=== PATIENT | female | born 1950 | race Caucasian/White ===

== ENCOUNTER → 2017-01-23 | Outpatient (CLI) | payer MEDICARE ==
[~2017-01-23] MED LIST: /PRAV20TA PO; ALBUTEROL INH; CELE20TA PO; HYDR25TA6 PO; LISI20TA5 PO; MELOPOW PO; OMEP20TA7 PO; PERC5TAB8 OR; POTA20TA PO; TOPR25TA OR
[2017-01-23 13:54] LABS: BASO % 0.6 % (0.0-1.0); EOS # 0.1 K/mm3 (0.0-0.50); EOS % 1.3 % (0.0-3.0); LARGE UNSTAINED CELL # 0.1 K/mm3 (0.0-0.4); LARGE UNSTAINED CELL % 2.6 % (0.0-4.0); LYMPH # 1.7 K/mm3 (1.5-4.5); MEAN CORPUSCULAR HEMOGLOBIN 29.2 pg (27.0-33.0); MEAN CORPUSCULAR HGB CONC 33.7 g/dl (32.0-36.5); MEAN CORPUSCULAR VOLUME 86.8 fl (80.0-96.0); MONO # 0.3 K/mm3 (0.0-0.8); MONO % 6.4 % (0.0-5.0); NEUTROPHILS # 2.9 K/mm3 (1.8-7.7); PLATELET COUNT, AUTOMATED 264 k/mm3 (150-450); RED CELL DISTRIBUTION WIDTH 12.5 % (11.5-14.5); WHITE BLOOD COUNT 5.2 K/mm3 (4.0-10.0)
[2017-01-23 14:25] LABS: ALBUMIN 3.6 GM/DL (3.2-5.2); ALBUMIN/GLOBULIN RATIO 0.95 (1.00-1.93); ALKALINE PHOSPHATASE 99 U/L (45-117); ALT/SGPT 26 U/L (12-78); ANION GAP 8 MEQ/L (8-16); AST/SGOT 27 U/L (15-37); BILIRUBIN,TOTAL 0.5 MG/DL (0.2-1.0); BLOOD UREA NITROGEN 9 MG/DL (7-18); CALCIUM LEVEL 8.9 MG/DL (8.8-10.2); CARBON DIOXIDE LEVEL 28 MEQ/L (21-32); CHLORIDE LEVEL 105 MEQ/L (98-107); CREATININE FOR GFR 0.65 MG/DL (0.55-1.02); FERRITIN 25 NG/ML (8-252); GLOMERULAR FILTRATION RATE > 60.0 (>45); GLUCOSE, FASTING 87 MG/DL (80-110); MAGNESIUM LEVEL 2.1 MG/DL (1.8-2.4); PHOSPHORUS LEVEL 3.3 MG/DL (2.5-4.9); POTASSIUM SERUM 4.2 MEQ/L (3.5-5.1); SODIUM LEVEL 141 MEQ/L (136-145); TOTAL PROTEIN 7.4 GM/DL (6.4-8.2); VITAMIN B12 LEVEL 1407 PG/ML (247-911)
[2017-01-25 10:23] LABS: PRETREATED FOLATE FOR RBCFOL 16.1 NG/ML
== END ==
LOC: M LAB 13:19
PROVIDERS: ATTEND Surgery
DX: K91.2 Postsurgical malabsorption, not elsewhere classified (principal); Z98.84 Bariatric surgery status

== ENCOUNTER → 2017-08-07 | Outpatient (REF) | payer OTHER | LOC: M LAB REF 16:09 | PROVIDERS: ATTEND Physician Assistant | DX: N39.0 Urinary tract infection, site not specified (principal) ==

== ENCOUNTER → 2017-08-22 | Outpatient (REF) | payer OTHER | LOC: M LAB REF 17:17 | PROVIDERS: ATTEND Physician Assistant | DX: N39.0 Urinary tract infection, site not specified (principal) ==

== ENCOUNTER → 2017-12-23 | Outpatient (CLI) | payer MEDICARE ==
[2017-12-23 16:49] LABS: HEMOGLOBIN 13.9 g/dl (12.0-16.0); MEAN CORPUSCULAR HEMOGLOBIN 28.4 pg (27.0-33.0); MEAN CORPUSCULAR HGB CONC 32.3 g/dl (32.0-36.5); MEAN CORPUSCULAR VOLUME 87.9 fl (80.0-96.0); PLATELET COUNT, AUTOMATED 265 10^3/uL (150-450); RED BLOOD COUNT 4.89 10^6/uL (4.00-5.40); RED CELL DISTRIBUTION WIDTH 12.5 % (11.5-14.5); WHITE BLOOD COUNT 5.4 10^3/uL (4.0-10.0)
[2017-12-23 17:33] LABS: ALBUMIN 3.6 GM/DL (3.2-5.2); ALBUMIN/GLOBULIN RATIO 0.95 (1.00-1.93); ALKALINE PHOSPHATASE 85 U/L (45-117); ALT/SGPT 42 U/L (12-78); ANION GAP 5 MEQ/L (8-16); AST/SGOT 34 U/L (7-37); BILIRUBIN,TOTAL 0.4 MG/DL (0.2-1.0); BLOOD UREA NITROGEN 10 MG/DL (7-18); CALCIUM LEVEL 8.5 MG/DL (8.8-10.2); CARBON DIOXIDE LEVEL 30 MEQ/L (21-32); CHLORIDE LEVEL 107 MEQ/L (98-107); CHOLESTEROL LEVEL 222 MG/DL (<200); CHOLESTEROL RISK RATIO 3.762 (<5); CREATININE FOR GFR 0.77 MG/DL (0.55-1.30); FREE T3 2.3 PG/ML (2.2-4.0); FREE T4 0.81 NG/DL (0.76-1.46); GLOMERULAR FILTRATION RATE > 60.0 (>45); GLUCOSE, FASTING 97 MG/DL (70-100); HDL CHOLESTEROL 59 MG/DL (>40); NON-HDL-C 163 MG/DL; SODIUM LEVEL 142 MEQ/L (136-145); TOTAL PROTEIN 7.4 GM/DL (6.4-8.2); TRIGLYCERIDES LEVEL 110 MG/DL (<150)
[2017-12-23 18:33] LABS: MALB URINE SIEMENS 55.3 MG/L; MAU/CREAT RATIO 23.6 MCG/MG (0.0-30.0)
[2017-12-23 20:29] LABS: ESTIMATED AVERAGE GLUCOSE 114 MG/DL (60-110); HEMOGLOBIN A1c 5.6 %
== END ==
LOC: M WUC 11:29
DX: E03.9 Hypothyroidism, unspecified (principal); E11.9 Type 2 diabetes mellitus without complications
CPT/HCPCS: 84443

== ENCOUNTER → 2018-04-09 | Outpatient (CLI) | payer MEDICARE | LOC: M WUC 09:59 | DX: M17.12 Unilateral primary osteoarthritis, left knee (principal) | CPT/HCPCS: 73564 ==

== ENCOUNTER → 2018-05-29 | Outpatient (CLI) | payer MEDICARE | LOC: M RAD 11:05 | DX: Z12.31 Encounter for screening mammogram for malignant neoplasm of breast (principal); Z78.0 Asymptomatic menopausal state; Z92.29 Personal history of other drug therapy; Z92.89 Personal history of other medical treatment | CPT/HCPCS: 77067 ==

== ENCOUNTER → 2018-08-05 | Outpatient (CLI) | payer MEDICARE ==
[2018-08-05 17:40] LABS: FREE T3 2.3 PG/ML (2.2-4.0); FREE T4 0.94 NG/DL (0.76-1.46)
== END ==
LOC: M WUC 11:43
DX: E03.9 Hypothyroidism, unspecified (principal)
CPT/HCPCS: 84443

== ENCOUNTER → 2019-02-10 | Outpatient (CLI) | payer MEDICARE ==
[~2019-02-10] MED LIST changes: -/PRAV20TA PO; +METO-1 OR; +PRAV1TAB39 PO; -TOPR25TA OR
[2019-02-10 12:14] LABS: BASO % 0.9 % (0.0-1.0); EOS # 0.1 10^3/uL (0.0-0.50); EOS % 1.1 % (0.0-3.0); HEMOGLOBIN 13.8 g/dl (12.0-15.5); LYMPH # 1.7 10^3/uL (1.5-4.5); LYMPH % 37.6 % (24.0-44.0); MEAN CORPUSCULAR HEMOGLOBIN 29.1 pg (27.0-33.0); MEAN CORPUSCULAR HGB CONC 32.9 g/dl (32.0-36.5); MEAN CORPUSCULAR VOLUME 88.6 fl (80.0-96.0); MONO # 0.5 10^3/uL (0.0-0.8); MONO % 10.5 % (0.0-5.0); NEUTROPHILS # 2.3 10^3/uL (1.8-7.7); NEUTROPHILS % 49.7 % (36.0-66.0); PLATELET COUNT, AUTOMATED 292 10^3/uL (150-450); RED BLOOD COUNT 4.74 10^6/uL (4.00-5.40); WHITE BLOOD COUNT 4.6 10^3/uL (4.0-10.0)
[2019-02-10 12:36] LABS: HEMOGLOBIN A1c 5.5 %
[2019-02-10 12:47] LABS: ALBUMIN 3.3 GM/DL (3.2-5.2); ALT/SGPT 141 U/L (12-78); BILIRUBIN,TOTAL 0.5 MG/DL (0.2-1.0); BLOOD UREA NITROGEN 6 MG/DL (7-18); CALCIUM LEVEL 8.7 MG/DL (8.8-10.2); CARBON DIOXIDE LEVEL 29 MEQ/L (21-32); CHLORIDE LEVEL 107 MEQ/L (98-107); CHOLESTEROL LEVEL 193 MG/DL (<200); CHOLESTEROL RISK RATIO 2.718 (<5); CREATININE FOR GFR 0.68 MG/DL (0.55-1.30); FERRITIN 127 NG/ML (8-252); FOLATE > 24.0 NG/ML; FREE T4 1.57 NG/DL (0.76-1.46); GLOMERULAR FILTRATION RATE > 60.0 (>45); GLUCOSE, FASTING 82 MG/DL (70-100); HDL CHOLESTEROL 71 MG/DL (>40); IRON (FE) 99 UG/DL (50-170); LDL CHOLESTEROL 101 MG/DL (<100); MAGNESIUM LEVEL 2.1 MG/DL (1.8-2.4); NON-HDL-C 122 MG/DL; PERCENT SATURATION 24.5 % (13.2-45.0); POTASSIUM SERUM 3.9 MEQ/L (3.5-5.1); SODIUM LEVEL 142 MEQ/L (136-145); THYROID STIMULATING HORMONE 0.125 uIU/ML (0.358-3.740); TOTAL 25(OH) VITAMIN D 31.7 NG/ML (30.0-100.0); TOTAL IRON BINDING CAPACITY 404 UG/DL (250-450); TOTAL T3 130.2 NG/DL (60.0-181.0); TRIGLYCERIDES LEVEL 104 MG/DL (<150); VITAMIN B12 LEVEL 1277 PG/ML
== END ==
LOC: M LAB 11:44
PROVIDERS: ATTEND Family Medicine
DX: E11.9 Type 2 diabetes mellitus without complications (principal); Z98.84 Bariatric surgery status; E03.9 Hypothyroidism, unspecified; Z79.899 Other long term (current) drug therapy

== ENCOUNTER → 2019-08-25 | Outpatient (CLI) | payer MEDICARE ==
--- NOTE | 2019-08-25 12:48 | REPMRS ---
Patient History The patient states she has not had a clinical breast exam in over a year. Family history of unknown cancer at age 26 in son. Taking unspecified hormones for 10 years. 3D TOMOSYNTHESIS WAS PERFORMED. [facility] lifetime risk for breast cancer is 4.3%. Digital Mammo Screening Bilat: August 25, 2019 - Exam #: [id number] Bilateral CC and MLO view(s) were taken. Technologist: Celeste Barnes, Technologist Prior study comparison: May 29, 2018, bilateral digital mammo screening bilat performed at [facility]. FINDINGS: There are scattered fibroglandular densities. There has been no change in the appearance of the mammogram from the prior studies. There is a mild amount of residual fibroglandular tissue which is fairly symmetric. There is no interval development of dominant mass, architectural distortion, or clustered microcalcification suggestive of malignancy. Assessment: BI-RADS/ACR category 1 mammogram. Negative Mammogram. Recommendation Routine screening mammogram in 1 year (for women over age 40). This mammogram was interpreted with the aid of an FDA-approved computer-aided dectection system. Electronically Signed By: Mehran Hillman MD 08/25/19 [id number]
[2019-08-25 13:22] LABS: ALBUMIN 3.1 GM/DL (3.2-5.2); ALT/SGPT 37 U/L (12-78); BILIRUBIN,DIRECT 0.2 MG/DL (0.0-0.2); BILIRUBIN,TOTAL 0.5 MG/DL (0.2-1.0); FREE T4 1.19 NG/DL (0.76-1.46); TOTAL PROTEIN 7.4 GM/DL (6.4-8.2)
[2019-08-26 09:09] LABS: HEPATITIS B SURFACE ANTIGEN NEGATIVE (NEGATIVE)
[2019-08-26 09:36] LABS: HEPATITIS B CORE ANTIBODY IGM NEGATIVE (NEGATIVE); HEPATITIS C VIRUS ABY INDEX 0.2 INDEX (<0.8)
[2019-08-26 09:38] LABS: HEPATITIS A ANTIBODY IGM NEGATIVE (NEGATIVE)
== END ==
LOC: M RAD 11:32
PROVIDERS: ATTEND Family Medicine
DX: E03.9 Hypothyroidism, unspecified (principal); R74.0 Nonspecific elevation of levels of transaminase and lactic acid dehydrogenase [LDH]; Z12.31 Encounter for screening mammogram for malignant neoplasm of breast

== ENCOUNTER → 2020-06-24 | Outpatient (CLI) | payer MEDICARE ==
[2020-07-23 04:23] LABS: HEMATOCRIT 44.1 % (36.0-47.0); HEMOGLOBIN 13.9 g/dl (12.0-15.5); MEAN CORPUSCULAR HEMOGLOBIN 27.6 pg (27.0-33.0); MEAN CORPUSCULAR HGB CONC 31.5 g/dl (32.0-36.5); MEAN CORPUSCULAR VOLUME 87.5 fl (80.0-96.0); PLATELET COUNT, AUTOMATED 295 10^3/uL (150-450); RED BLOOD COUNT 5.04 10^6/uL (4.00-5.40); WHITE BLOOD COUNT 6.4 10^3/uL (4.0-10.0)
[2020-08-08 10:04] LABS: ALBUMIN 3.5 GM/DL (3.2-5.2); ALT/SGPT 41 U/L (12-78); BILIRUBIN,TOTAL 0.5 MG/DL (0.2-1.0); BLOOD UREA NITROGEN 10 MG/DL (7-18); CALCIUM LEVEL 9.4 MG/DL (8.8-10.2); CARBON DIOXIDE LEVEL 30 MEQ/L (21-32); CHLORIDE LEVEL 106 MEQ/L (98-107); CHOLESTEROL LEVEL 225 MG/DL (<200); CHOLESTEROL RISK RATIO 2.848 (<5); FERRITIN 18 NG/ML (8-252); FOLATE > 24.0 NG/ML; FREE T3 1.9 PG/ML (2.2-4.0); FREE T4 0.94 NG/DL (0.76-1.46); GLOMERULAR FILTRATION RATE > 60.0 (>45); GLUCOSE, FASTING 92 MG/DL (70-100); HDL CHOLESTEROL 79 MG/DL (>40); IRON (FE) 99 UG/DL (50-170); LDL CHOLESTEROL 124 MG/DL (<100); MAGNESIUM LEVEL 2.1 MG/DL (1.8-2.4); NON-HDL-C 146 MG/DL; PERCENT SATURATION 21.2 % (13.2-45.0); POTASSIUM SERUM 4.6 MEQ/L (3.5-5.1); SODIUM LEVEL 140 MEQ/L (136-145); TOTAL 25(OH) VITAMIN D 42.6 NG/ML (30.0-100.0); TOTAL IRON BINDING CAPACITY 467 UG/DL (250-450); TRIGLYCERIDES LEVEL 109 MG/DL (<150); VITAMIN B12 LEVEL 1437 PG/ML
== END ==
LOC: M LAB 11:50
PROVIDERS: ATTEND Family Medicine
DX: E03.9 Hypothyroidism, unspecified (principal); E11.9 Type 2 diabetes mellitus without complications; Z98.84 Bariatric surgery status; Z79.899 Other long term (current) drug therapy

== ENCOUNTER 2020-10-08 04:25 | Emergency (ER) | payer MEDICARE ==
[~2020-10-08] VITALS: Ht 152.4 cm; Wt 83.5 kg
[2020-10-08] MEDS ORDERED: OXYB5TAB10 PO (04:37)
[2020-10-08] MEDS ORDERED: GABA-845 PO (04:37)
[2020-10-08] MEDS ORDERED: EUTH100T PO (04:37)
[2020-10-08] MEDS ORDERED: OMEP10CASR PO (04:37)
[2020-10-08] MEDS ORDERED: PERCOCET 5MG/325MG TAB PO ONE (05:15)
[2020-10-08 05:59] VITALS: BP 180/110
[2020-10-08] MEDS ORDERED: PERC5TAB12 PO ×2 (06:04→06:05)
[2020-10-08] MEDS ORDERED: OXYCODONE/APAP 5MG/325MG(BULK FOR ED) 1 TABLET PO ONE (06:15)
--- NOTE | 2020-10-08 06:30 | REPVR ---
PROCEDURE INFORMATION: Exam: XR Left Shoulder Exam date and time: 10/08/2020 5:44 AM Age: 70 years old Clinical indication: Other: Falll, pain; Additional info: Fall, pain TECHNIQUE: Imaging protocol: XR Left shoulder. Views: 2 or more views. COMPARISON: No relevant prior studies available. FINDINGS: Bones/joints: There is an acute, comminuted fracture of the surgical neck of the humerus. There is medial displacement of the humeral diaphysis relative to the humeral head. There is mild valgus angulation of the humeral diaphysis. There is an ossific density superior to the humeral head which appears to be a large inferior spur from the acromion. There is no dislocation. Degenerative changes are seen at the acromioclavicular joint. Soft tissues: Unremarkable. IMPRESSION: 1. Acute, comminuted, mildly displaced and angulated fracture of the surgical neck of the humerus. 2. Large inferior spur of the lateral acromion. Electronically signed by: Babs Lebron On 10/08/2020 06:29:42 AM
== END 2020-10-08 06:23 | disposition home or self-care (01) ==
LOC: M ED 04:25
DX: S42.212A Unspecified displaced fracture of surgical neck of left humerus, initial encounter for closed fracture (principal); W10.8XXA Fall (on) (from) other stairs and steps, initial encounter; Y92.410 Unspecified street and highway as the place of occurrence of the external cause; Y93.9 Activity, unspecified; M25.712 Osteophyte, left shoulder; I10 Essential (primary) hypertension; K21.9 Gastro-esophageal reflux disease without esophagitis; Z87.891 Personal history of nicotine dependence; Z79.899 Other long term (current) drug therapy

== ENCOUNTER → 2020-12-16 | Outpatient (CLI) | payer MEDICARE ==
[~2020-12-16] MED LIST changes: +EUTH100T PO; +GABA-845 PO; +OMEP10CASR PO; +OXYB5TAB10 PO; +PERC5TAB12 PO
[2020-12-16 13:46] LABS: BLOOD UREA NITROGEN 9 MG/DL (7-18); GLOMERULAR FILTRATION RATE > 60.0 (>45)
== END ==
LOC: M LAB 12:48
PROVIDERS: ATTEND Orthopaedic Surgery
DX: S80.01XD Contusion of right knee, subsequent encounter (principal); X58.XXXD Exposure to other specified factors, subsequent encounter; Y92.9 Unspecified place or not applicable

== ENCOUNTER → 2021-03-07 | Outpatient (CLI) | payer MEDICARE ==
[2021-03-07 11:19] LABS: HEMATOCRIT 44.1 % (36.0-47.0); HEMOGLOBIN 13.9 g/dl (12.0-15.5); MEAN CORPUSCULAR HEMOGLOBIN 27.7 pg (27.0-33.0); MEAN CORPUSCULAR HGB CONC 31.5 g/dl (32.0-36.5); MEAN CORPUSCULAR VOLUME 87.8 fl (80.0-96.0); PLATELET COUNT, AUTOMATED 314 10^3/uL (150-450); RED BLOOD COUNT 5.02 10^6/uL (4.00-5.40); WHITE BLOOD COUNT 5.3 10^3/uL (4.0-10.0)
[2021-03-07 11:52] LABS: ALBUMIN 3.7 GM/DL (3.2-5.2); ALT/SGPT 32 U/L (12-78); BILIRUBIN,TOTAL 0.6 MG/DL (0.2-1.0); BLOOD UREA NITROGEN 14 MG/DL (7-18); CALCIUM LEVEL 9.5 MG/DL (8.8-10.2); CARBON DIOXIDE LEVEL 30 MEQ/L (21-32); CHLORIDE LEVEL 105 MEQ/L (98-107); CHOLESTEROL LEVEL 263 MG/DL (<200); CHOLESTEROL RISK RATIO 3.652 (<5); CREATININE FOR GFR 0.67 MG/DL (0.55-1.30); FREE T3 2.3 PG/ML (2.2-4.0); FREE T4 0.88 NG/DL (0.76-1.46); GLOMERULAR FILTRATION RATE > 60.0 (>45); GLUCOSE, FASTING 94 MG/DL (70-100); HDL CHOLESTEROL 72 MG/DL (>40); LDL CHOLESTEROL 161 MG/DL (<100); NON-HDL-C 191 MG/DL; POTASSIUM SERUM 4.3 MEQ/L (3.5-5.1); SODIUM LEVEL 141 MEQ/L (136-145); TOTAL PROTEIN 7.8 GM/DL (6.4-8.2); TRIGLYCERIDES LEVEL 148 MG/DL (<150)
[2021-03-07 11:54] LABS: MAU/CREAT RATIO 86.2 MCG/MG (0.0-30.0); TOTAL 25(OH) VITAMIN D 33.2 NG/ML (30.0-100.0)
[2021-03-07 11:56] LABS: HEMOGLOBIN A1c 5.3 %
== END ==
LOC: M LAB 10:28
PROVIDERS: ATTEND Family Medicine
DX: E03.9 Hypothyroidism, unspecified (principal); E11.9 Type 2 diabetes mellitus without complications

== ENCOUNTER → 2021-05-24 | Outpatient (CLI) | payer MEDICARE ==
[~2021-05-24] MED LIST changes: +GABA-283 PO; -GABA-845 PO
[2021-05-24 12:45] LABS: HEMOGLOBIN A1c 5.5 %
[2021-05-24 12:49] LABS: ALBUMIN 3.4 GM/DL (3.2-5.2); ALT/SGPT 34 U/L (12-78); BILIRUBIN,TOTAL 0.5 MG/DL (0.2-1.0); BLOOD UREA NITROGEN 12 MG/DL (7-18); CALCIUM LEVEL 9.5 MG/DL (8.8-10.2); CARBON DIOXIDE LEVEL 29 MEQ/L (21-32); CHLORIDE LEVEL 108 MEQ/L (98-107); CHOLESTEROL LEVEL 176 MG/DL (<200); CHOLESTEROL RISK RATIO 2.478 (<5); CREATININE FOR GFR 0.67 MG/DL (0.55-1.30); FREE T4 1.42 NG/DL (0.76-1.46); GLOMERULAR FILTRATION RATE > 60.0 (>45); GLUCOSE, FASTING 96 MG/DL (70-100); HDL CHOLESTEROL 71 MG/DL (>40); LDL CHOLESTEROL 82 MG/DL (<100); NON-HDL-C 105 MG/DL; POTASSIUM SERUM 4.4 MEQ/L (3.5-5.1); SODIUM LEVEL 143 MEQ/L (136-145); THYROID STIMULATING HORMONE 0.014 uIU/ML (0.358-3.740); TOTAL PROTEIN 7.3 GM/DL (6.4-8.2); TRIGLYCERIDES LEVEL 113 MG/DL (<150)
== END ==
LOC: M LAB 11:25
PROVIDERS: ATTEND Family Medicine
DX: E11.9 Type 2 diabetes mellitus without complications (principal); E03.9 Hypothyroidism, unspecified

== ENCOUNTER 2021-10-07 20:07 | Emergency (ER) | payer MEDICARE ==
[~2021-10-07] VITALS: Ht 154.9 cm; Wt 77.3 kg
--- OUTSIDE RECORDS SUMMARY | 2021-10-07 20:20 | CCD ---
Author Author [facility] Organization [facility] Address Unknown Phone Unavailable Care Team Providers [facility] Name Role Phone Zohreh Ocampo MD Unavailable Unavailable Zohreh Ocampo MD Unavailable Unavailable Zohreh Ocampo MD Unavailable Unavailable Zohreh Ocampo MD Unavailable Unavailable Zohreh Ocampo MD Unavailable Unavailable Zohreh Ocampo MD Unavailable Unavailable Zohreh Ocampo MD Unavailable Unavailable Zohreh Ocampo MD Unavailable Unavailable Zohreh Ocampo MD Unavailable Unavailable Zohreh Ocampo MD Unavailable Unavailable Zohreh Ocampo MD Unavailable Unavailable [facility], [facility] Unavailable Unavailabl e Fish, [facility], PA-C Unavailable Unavailabl e Fish, [facility], PA-C Unavailable Unavailabl e Fish, [facility], PA-C Unavailable Unavailabl e Fish, [facility] Unavailable Unavailabl e Fish, [facility] Unavailable Unavailabl e Fish, [facility] Unavailable Unavailabl e Fish, [facility] Unavailable Unavailabl e Fish, [facility] Unavailable Unavailabl e Fish, [facility] Unavailable Unavailabl e Fish, [facility], [facility] Unavailable Unavailabl e Fish, Amanda [facility], PA-C Unavailable Unavailabl e Fish, [facility], PA-C Unavailable Unavailabl e Fish, [facility], PA-C Unavailable Unavailabl e Fish, [facility], PA-C Unavailable Unavailabl e Fish, [facility], PA-C Unavailable Unavailabl e Fish, [facility], PA-C Unavailable Unavailabl e Fish, [facility], PA-C Unavailable Unavailabl e Fish, [facility], PA-C Unavailable Unavailabl e Fish, [facility], PA-C Unavailable Unavailabl e Fish, [facility], PA-C Unavailable Unavailabl e Fish, [facility], PA-C Unavailable Unavailabl e Fish, [facility], PA-C Unavailable Unavailabl e Fish, [facility], PA-C Unavailable Unavailabl e Fish, [facility], PA-C Unavailable Unavailabl e Fish, [facility], PA-C Unavailable Unavailabl e Fish, [facility], PA-C Unavailable Unavailabl e Fish, [facility], PA-C Unavailable Unavailabl e Fish, [facility], PA-C Unavailable Unavailabl e Fish, [facility], PA-C Unavailable Unavailabl e Fish, [facility], PA-C Unavailable Unavailabl e Fish, [facility], PA-C Unavailable Unavailabl e Fish, [facility], PA-C Unavailable Unavailabl e Fish, [facility], PA-C Unavailable Unavailabl e Fish, [facility], PA-C Unavailable Unavailabl e Fish, [facility], PA-C Unavailable Unavailabl e EBONIEHERBRYANT REID Unavailable Unavailable BRYANT VARELA Unavailable Unavailable BRYANT VARELA Unavailable Unavailable BRYANT VARELA Unavailable Unavailable BRYANT VARELA Unavailable Unavailable BRYANT VARELA Unavailable Unavailable BRYANT VARELA Unavailable Unavailable BRYANT VARELA Unavailable Unavailable BRYANT VARELA Unavailable Unavailable BRYANT VARELA Unavailable Unavailable BRYANT VARELA Unavailable Unavailable MCELHERAN, BRYANT PA Unavailable Unavailable MCELHERAN, BRYANT PA Unavailable Unavailable MCELHERAN, BRYANT PA Unavailable Unavailable MCELHERAN, BRYANT PA Unavailable Unavailable MCELHERAN, BRYANT PA Unavailable Unavailable MCELHERAN, BRYANT PA Unavailable Unavailable MCELHERAN, BRYANT PA Unavailable Unavailable MCELHERAN, BRYANT PA Unavailable Unavailable MCELHERAN, BRYANT PA Unavailable Unavailable MCELHERAN, BRYANT PA Unavailable Unavailable MCELHERAN, BRYANT PA Unavailable Unavailable MCELHERAN, BRYANT PA Unavailable Unavailable MCELHERAN, BRYANT PA Unavailable Unavailable MCELHERAN, BRYANT PA Unavailable Unavailable MCELHERAN, BRYANT PA Unavailable Unavailable MCELHERAN, BRYANT PA Unavailable Unavailable MCELHERAN, BRYANT PA Unavailable Unavailable MCELHERAN, BRYANT PA Unavailable Unavailable NEAL GRAVES MD Unavailable Unavailable MARKWITH, NEAL RIVERA Unavailable Unavailable MARKWITH, NEAL RIVERA Unavailable Unavailable MARKWITH, NEAL RIVERA Unavailable Unavailable MARKRYAN, NEAL RIVERA Unavailable Unavailable NEAL GRAVES MD Unavailable Unavailable NEAL GRAVES MD Unavailable Unavailable NEAL GRAVES MD Unavailable Unavailable NEAL GRAVES MD Unavailable Unavailable NEAL GRAVES MD Unavailable Unavailable NEAL GRAVES MD Unavailable Unavailable NEAL GRAVES MD Unavailable Unavailable NEAL GRAVES MD Unavailable Unavailable NEAL GRAVES MD Unavailable Unavailable NEAL GRAVES MD Unavailable Unavailable NEAL GRAVES MD Unavailable Unavailable NEAL GRAVES MD Unavailable Unavailable NEAL GRAVES MD Unavailable Unavailable NEAL GRAVES MD Unavailable Unavailable NEAL GRAVES MD Unavailable Unavailable NEAL GRAVES MD Unavailable Unavailable NEAL GRAVES MD Unavailable Unavailable NEAL GRAVES MD Unavailable Unavailable NEAL GRAVES MD Unavailable Unavailable NEAL GRAVES MD Unavailable Unavailable NEAL GRAVES MD Unavailable Unavailable NEAL GRAVES MD Unavailable Unavailable NEAL GRAVES MD Unavailable Unavailable NEAL GRAVES MD Unavailable Unavailable NEAL GRAVES MD Unavailable Unavailable NEAL GRAVES MD Unavailable Unavailable NEAL GRAVES MD Unavailable Unavailable NEAL GRAVES MD Unavailable Unavailable Re-disclosure Warning The records that you are about to access may contain information from federally-assisted alcohol or drug abuse programs. If such information is present, then the following federally mandated warning applies: This information has been disclosed to you from records protected by federal confidentiality rules (42 CFR part 2). The federal rules prohibit you from making any further disclosure of this information unless further disclosure is expressly permitted by the written consent of the person to whom it pertains or as otherwise permitted by 42 CFR part 2. A general authorization for the release of medical or other information is NOT sufficient for this purpose. The Federal rules restrict any use of the information to criminally investigate or prosecute any alcohol or drug abuse patient.The records that you are about to access may contain highly sensitive health information, the redisclosure of which is protected by Article 27-F of the [facility] Public Health law. If you continue you may have access to information: Regarding HIV / AIDS; Provided by facilities licensed or operated by the [facility] Office of Mental Health; or Provided by the [facility] Office for People With Developmental Disabilities. If such information is present, then the following [facility] mandated warning applies: This information has been disclosed to you from confidential records which are protected by state law. State law prohibits you from making any further disclosure of this information without the specific written consent of the person to whom it pertains, or as otherwise permitted by law. Any unauthorized further disclosure in violation of state law may result in a fine or penitentiary sentence or both. A general authorization for the release of medical or other information is NOT sufficient authorization for further disc losure. Family History Family Member Name Family Member Gender Family Member Status Date o f Status Description Data Source(s) Unknown Unknown Problem [facility] ([facility]) father Unknown Male Problem [facility] ([facility]) Encounters Encounter Providers Location Date Indications Data Source(s ) Office Visit Attender: Sobeida BENSON PA-C Physical Therapy 06/13/2021 02:15:00 PM EDT [facility] ([facility]) Outpatient Attender: Abraham Ocampo MD Physical Therapy 08:45:00 AM EDT [facility] ([facility]) Outpatient Attender: Abraham Ocampo MD Physical Therapy 04/2021 09:45:00 AM EDT [facility] ([facility]) Office Visit Attender: BRYANT CLARK Physical Therapy 12/08/2020 02:30:00 PM EST [facility] ([facility]) Office Visit Attender: NEAL GRAVES MD Physical Therapy 10:15:00 AM EST [facility] ([facility]) Office Visit Attender: BRYANT CLARK Physical Therapy 11/02/2020 09:30:00 AM EST [facility] ([facility]) Outpatient Attender: NEAL GRAVES MD Physical Therapy 09:30:00 AM EST [facility] ([facility]) OFFICE OUTPATIENT VISIT 15 MINUTES Attender: BRYANT CLARK Physical Therapy 10/10/2020 12:00:00 PM EST [facility] ([facility]) OFFICE OUTPATIENT VISIT 15 MINUTES Attender: NEAL GRAVES MD Physical Therapy 08/18/2020 09:30:00 AM EDT [facility] ([facility]) Immunizations Vaccine Date Status Description Data Source(s) COVID-19 VACCINE Pfizer 09/19/2021 12:00:00 AM EDT completed [facility] Vaccine Series Complete: YESThis Data wa s Submitted to [facility]. COVID-19 VACCINE Pfizer 01/05/2021 12:00:00 AM EST completed [facility] Vaccine Series Complete: YESThis Data wa s Submitted to [facility]. COVID-19 VACCINE Pfizer 12/15/2020 12:00:00 AM EST completed [facility] Vaccine Series Complete: NOThis Data was Submitted to [facility] Via [facility]. Medications Medication Brand Name Start Date Product Form Dose Route Admi nistrative Instructions Pharmacy Instructions Status Indications Reaction Description Data Source(s) 2 ML HYLAN G-F 20 8 MG/ML Prefilled Syringe [Synvisc] Synvis c 06/13/2021 12:00:00 AM EDT active M [facility] ([facility] ) Oxycodone Hydrochloride 5 MG Oral Tablet Oxycodone HCL 10/21/2020 12:00:00 AM EST ORAL active [facility] ([facility] ) Oxycodone Hydrochloride 5 MG Oral Capsule Oxycodone HCL 10/20/2020 12:00:00 AM EST ORAL completed [facility] ([facility] ) Oxycodone Hydrochloride 5 MG Oral Capsule Oxycodone HCL 10/17/2020 12:00:00 AM EST ORAL completed [facility] ([facility] ) 5-325 mg 10/10/2020 12:00:00 AM EST tablet 12 TAKE ONE TABLET BY MOUTH EVERY SIX HOURS NEEDED FOR PAIN. MAX DAILY DOSE=FOUR TABLETS TAKE ONE TABLET BY MOUTH EVERY SIX HOURS NEEDED FOR PAIN. MAX DAILY DOSE=FOUR TABLETS SOLD: 10/10/2020 [facility] Insurance Providers Payer name Policy type / Coverage type Policy ID Covered constitution party ID Covered constitution party's relationship to rodriguez Policy Rodriguez Plan Information MVP (pr) Commercial [id number] Self [id number] MVP (pr) Commercial [id number] Self [id number] MVP (pr) Commercial [id number] Self [id number] MVP (pr) Commercial [id number] Self [id number] MEDICARE 4 [id number] 1 [id number] A MEDICARE [id number] SP [id number] A Medicare [place] Med[place]ap Part B [id number] Self [id number] Medicare [place] Medigap Part B [id number] Self [id number] Medicare [place] Medigap Part B [id number] Self [id number] Medicare [place] Medigap Part B [id number] Self [id number] [employer]ARM [employer] TE[employer]ER [id number] MEDICARE BLUE PPO [id number] SP [id number] HUMANA GOLD [id number] SP [id number] HUMANA PPO [id number] SP [id number] Humana Commercial [id number] Self [id number] Hum[employer] Commercial [id number] Self [id number] AARP HEALTH CARE OPTIONS [id number] SP [id number] Medicare Natl Gov't Servi Medicare Primary [id number] Self SELF PAY 2 UNAVAILABLE 1 UNAVAILA BLE [facility] 2 [id number] 1 [id number] [facility] 2 [id number] 1 [id number] [facility] [id number] SP [id number] [facility] O [id number] S [id number] MEDICARE COMPLETE [id number] SP [id number] MEDICARE C [id number] S [id number] MCRO [id number] SP [id number] MEDICARE BLUE PPO [id number] SP [id number] MEDICARE BLUE PPO [id number] SP [id number] EXCELLUS BCBS B [id number] S [id number] [id number] EXCELLUS BCBS B [id number] S VYM [id number] MEDICARE C UNAVAILABLE [id number] S UNAVAILA BLE Blue Shield [facility] Commercial [id number] Self V [id number] MEDICARE BLUE PPO [id number] SP [id number] BS Medicare Blue Ppo/Hmo Commercial [id number] Self [id number] BS Medicare Blue Ppo/Hmo Commercial [id number] Self [id number] Problems, Conditions, and Diagnoses No Information Surgeries/Procedures Procedure Description Date Indications Data Source(s) THERAPEUTIC PX 1/> AREAS EACH 15 MIN EXERCISES 021 12:00:00 AM EDT [facility] ([facility] ) THERAPEUTIC PX 1/> AREAS EACH 15 MIN EXERCISES 021 12:00:00 AM EDT [facility] ([facility] ) THERAPEUTIC PX 1/> AREAS EACH 15 MIN EXERCISES 021 12:00:00 AM EDT [facility] ([facility] ) THERAPEUTIC PX 1/> AREAS EACH 15 MIN EXERCISES 021 12:00:00 AM EDT [facility] ([facility] ) THERAPEUTIC PX 1/> AREAS EACH 15 MIN EXERCISES 021 12:00:00 AM EDT [facility] ([facility] ) THERAPEUTIC PX 1/> AREAS EACH 15 MIN EXERCISES 021 12:00:00 AM EDT [facility] ([facility] ) THERAPEUTIC PX 1/> AREAS EACH 15 MIN EXERCISES 021 12:00:00 AM EDT [facility] ([facility] ) THERAPEUTIC PX 1/> AREAS EACH 15 MIN EXERCISES 021 12:00:00 AM EDT [facility] ([facility] ) THERAPEUTIC PX 1/> AREAS EACH 15 MIN EXERCISES 021 12:00:00 AM EDT [facility] ([facility] ) ARTHROCENTESIS ASPIR&/INJECTION MAJOR JT/BURSA 12:00:00 AM EDT [facility] ([facility] ) Physical Therapy Eval - Low Complexity 06/06/2021 12:0 0:00 AM EDT [facility] ([facility] ) RADIOLOGIC EXAM KNEE COMPLETE 4/MORE VIEWS 05/17/2021 12:00:00 AM EDT [facility] ([facility] ) OFFICE OUTPATIENT VISIT 25 MINUTES 05/17/2021 12:00:00 AM EDT [facility] ([facility] ) RADIOLOGIC EXAM KNEE COMPLETE 4/MORE VIEWS 05/17/2021 12:00:00 AM EDT [facility] ([facility] ) ARTHROCENTESIS ASPIR&/INJECTION MAJOR JT/BURSA 021 12:00:00 AM EDT [facility] ([facility] ) OFFICE OUTPATIENT VISIT 25 MINUTES 03/23/2021 12:00:00 AM EDT [facility] ([facility] ) ARTHROCENTESIS ASPIR&/INJECTION MAJOR JT/BURSA 021 12:00:00 AM EDT [facility] ([facility]) ARTHROCENTESIS ASPIR&/INJECTION MAJOR JT/BURSA 021 12:00:00 AM EDT [facility] ([facility] ) X-Ray Humerus Two Views 12/08/2020 12:00:00 AM EST [facility] ([facility]) X-Ray Humerus Two Views 11/02/2020 12:00:00 AM EST [facility] ([facility]) ARTHROCENTESIS ASPIR&/INJECTION MAJOR JT/BURSA 020 12:00:00 AM EST [facility] ([facility]) RADIOLOGIC EXAMINATION KNEE 1/2 VIEWS 10/17/2020 12:00 :00 AM EST [facility] ([facility]) CLTX PROXIMAL HUMERAL FRACTURE W/O MANIPULATION 2019 12:00:00 AM EST [facility] ([facility]) RADIOLOGIC EXAMINATION KNEE 1/2 VIEWS 08/18/2020 12:00 :00 AM EDT [facility] ([facility]) MRI Upper Extremity Any Joint 08/10/2020 12:00:00 AM E DT [facility] ([facility]) Results ID Date Data Source [id number] 12/29/2020 12:00:00 AM EST [facility] Imaging Neal Graves MD Patient Name: CHEN ROJAS [id number] [facility] Date of : 1950 201 Date of Exam: 12/29/2020[place] [id number]#: Fax: [phone] EXAM: MRI FEMUR RIGHT WITHOUT&WITH CONTRASTCLINICAL INFORMATION: Contusion right knee.Pre and post contrast 3T MRI of the right femur was performed utilizingvarious sequences. Gadolinium utilized: 15 cc of ProHance.The femur demonstrates normal bone marrow signal. There is no bone marrowedema or occult fracture. No bone lesion is seen. There is no abnormalmarrow enhancement. Soft tissue structures of the thigh demonstrate noabnormal signal or enhancement. No soft tissue mass is seen. There areseveral non-enlarged right inguinal lymph nodes present. One is slightlyenlarged measuring 1.1 cm in short axis dimension. No other abnormalitiesare seen.IMPRESSION:No abnormality of the right femur. Soft tissue structures of the thighappear unremarkable. There is a slightly enlarged lymph node in the rightinguinal region 11 mm in short axis. Clinical correlation suggested.Accredited by the [employer] in MR.Mehran Hillman, PEDRO/Zeb you for referring CHEN Kumar TESSASUZIE to our office. Electronically Signed - MEHRAN HILLMAN MD 12/29/20 18:04 Name Value Range Interpretation Code Description Data Yina rce(s) Supporting Document(s) ID Date Data Source [id number] 12/16/2020 01:00:00 PM EST [facility] ([facility]) Name Value Range Interpretation Code Description Data Yina rce(s) Supporting Document(s) Creatinine For GFR 0.70 mg/dL 0.55-1.30 [facility] ([facility]) Glomerular Filtration Rate Laboratory test result [facility] ([facility]) <content>Units are mL/min/1.73 m2</content>
<content></content>
<content>Chronic Kidney Disease Staging per NKF:</content>
<content></content>
<content>Stage I & II GFR >=60 Normal to Mildly Decreased</content>
<content>Stage III GFR 30- 59 Moderately Decreased</content>
<content>Stage IV GFR 15-29 Severely Decreased</content>
<content>Stage V GFR <15 Very Little GFR Left</content>
<content>ESRD GFR <15 on ASSOCIATE PROFESSOR OF PSYCHOLOGY</content>
<content></content> ID Date Data Source [id number] 12/16/2020 01:00:00 PM EST [facility] ([facility]) Name Value Range Interpretation Code Description Data Yina rce(s) Supporting Document(s) Urea nitrogen [Mass/volume] in Serum or Plasma 9 mg/dL 7-18 [facility] ([facility]) ID Date Data Source [id number] 11/16/2020 12:00:00 AM EST [facility] Imaging Neal Graves MD Patient Name: CHEN ROJAS [id number] [facility] Date of : 1950 Date of Exam: 11/16/2020[place] [id number]#: Fax: [phone] EXAM: MRI KNEE RIGHT WITHOUT CONTRASTCLINICAL INFORMATION: Atraumatic chronic pain.3T multiplanar MRI imaging of the right knee was obtained using varioussequences.There are no prior right knee MRI's for compar eun.The anterior and posterior horns of the medial meniscus are within normallimits. There is Grade III signal change seen in the anterior horn of thelateral meniscus with evidence of a triangular shaped low signal structurein the lateral compartment adjacent to the lateral tibial eminence. SlightGrade III signal change is also seen in the posterior horn of the lateralmeniscus. The anterior and posterior cruciate ligaments are intact. Thereis mild T2 hypersignal seen within the ACL fibers. The quadriceps andpatellar tendons are intact. There is mild T2 hypersignal seen within someof the fibers of the lateral collateral ligament. The medial collateralligament is intact. The medial and lateral patellar retinacula are intact.There is thinning and irregularity of all articular cartilages. There isslight tricompartmental marginal osteophytosis. There is a slight jointeffusion. There is no Sherman's cyst. The marrow signal is within normallimits.IMPRESSION:1. There is a bucket handle tear of the lateral meniscus.2. The anterior cruciate ligament is sprained.3. The lateral collateral ligament is sprained and possibly partiallytorn.4. Tricompartmental chronic changes with marginal osteophytosis andchondromalacia as described above.5. There is a subtle joint effusion and tiny 2 cm sized Sherman's cyst.Accredited by the [employer] in MR.ANAND Garcia/Zeb you for referring CHEN Kumar TESSASUZIE to our office. Electronically Signed - GAGAN DE LEÓN DO 11/21/20 13:13 Name Value Range Interpretation Code Description Data Yina rce(s) Supporting Document(s) Procedure Social History No Information Vital Signs ID Date Data Source UNK Name Value Range Interpretation Code Description Data Source(s) Body temperature 96.4 [degF] 96.4 [degF] [facility] ([facility]) Body temperature 97.1 [degF] 97.1 [degF] [facility] ([facility]) Body mass index (BMI) [Ratio] 34.6 kg/m2 34.6 k g/m2 [facility] Body height 60 [in_i] 60 [in_i] [facility] ([facility]) 5'0" Body weight 177.00 [lb_av] 177.00 [lb_av] [facility] ([facility])
--- OUTSIDE RECORDS SUMMARY | 2021-10-07 20:20 | CCD | Continuity of Care Document ---
Author Author Macy DALTON [facility] Organization Unknown Address [address] [place] [address] Phone [phone] Care Team Providers Care As400 Operator Name Role Phone Jem Gomez AUTM [phone] Anibal Mitchell MD AUTM [phone] Problems Description No Information Available Social History Type Date Description Comments Sex Unknown ETOH Use Occasionally consumes alcohol Tobacco Use Start: Unknown End: Unknown Patient is a former smoker Allergies, Adverse Reactions, Alerts Description No Known Drug Allergies Medications Active Medications SIG Qnty Indications Ordering Provide r Date Synvisc 16mg/2ML Soln Prefill Syri nge right knee klf/cp 06/13/21 6ml Andrea Veliz MD Oxycodone HCL 5mg Tablets take 1 tablet by mouth every 4-6 hours as needed for pain, mdd 4 20tabs S83.281D Andrew Graves MD 10/21/2020 Fluzone High-Dose Quadrivalent 0.7 ml [facility] Administered Unknown Euthyrox 100mcg Tablets Take 1 Tablet By Mouth Once Daily In The Morning On An Empty Stomach Unknown Tolterodine Tartrate ER 2mg Caps E R 24HR Take 1 Capsule By Mouth Once Daily For 30 Days U nknown Citalopram Hydrobromide 20mg Table ts Take 1 Tablet By Mouth Once Daily Unknown Gabapentin 300mg Capsules Take 1 Capsule By Mouth Twice Daily Unknown Omeprazole 20mg Capsules DR Take 1 Capsule By Mouth Once Daily Unknown Zolpidem Tartrate 5mg Tablets Take 1 Tablet By Mouth AT Bedtime as Needed . DO Not Exceed 1 Per 24 Hours Unknown Fluzone High-Dose 0.5ml [facility] Administered Immunization Administered AT Time Of Dispensing Unknown Immunizations Description No Information Available Vital Signs Date Vital Result Comment 11/02/2020 10:39am Body Temperature 96.4 F 10/10/2020 1:31pm Body Temperature 97.1 F Height 60 inches 5'0" Weight 177.00 lb BMI (Body Mass Index) 34.6 kg/m2 Results Description No Information Available Procedures Date Code Description Status 07/12/2021 70562 Therapeutic Procedure, Each 15 M inutes Completed 07/05/2021 18775 Therapeutic Procedure, Each 15 M inutes Completed 06/30/2021 60274 Therapeutic Procedure, Each 15 M inutes Completed 06/28/2021 66334 Therapeutic Procedure, Each 15 M inutes Completed 06/23/2021 33767 Therapeutic Procedure, Each 15 M inutes Completed 06/21/2021 29522 Therapeutic Procedure, Each 15 M inutes Completed 06/14/2021 73229 Therapeutic Procedure, Each 15 M inutes Completed 06/13/2021 77201 Inject/Drain Joint/Bursa Major C ompleted 06/06/2021 93597 Physical Therapy Eval - Low Comp lexity Completed 05/17/2021 14597 Office/Outpatient Established Mo d MDM 30-39 Min Completed 05/17/2021 55729 X-Ray Knee Complete W/Obliques & Tunnel And/Or Standing Views Completed 03/23/2021 35617 Office/Outpatient Established Mo d MDM 30-39 Min Completed 03/23/2021 22462 Inject/Drain Joint/Bursa Major C ompleted Medical Devices Description No Information Available Encounters Type Date Location Provider Dx Diagnosis Office Visit 06/13/2021 2:15p Charley Veliz PA-C M17.11 Unilateral primary osteoarthritis, right knee Office Visit 05/17/2021 8:45a Charley Ocampo MD S83.28 1D Oth tear of lat mensc, current injury, right knee, subs M17.0 Bilateral primary osteoarthr itis of knee Office Visit 03/23/2021 9:45a Charley Ocampo MD M17.0 Bilateral primary osteoarthritis of knee S83.281D Oth tear of lat mensc, nasrine nt injury, right knee, subs Assessments Date Code Description Provider 07/12/2021 M17.0 Bilateral primary osteoarthritis of knee Jyoti Bangura P.T.A. 07/05/2021 M17.0 Bilateral primary osteoarthritis of knee Mahsa Tracey Martinez, HUMAN RESOURCE ASSISTANT 06/30/2021 M17.0 Bilateral primary osteoarthritis of knee Kalyan Dias.TFalguni 06/28/2021 M17.0 Bilateral primary osteoarthritis of knee Mahsa Tracey Martinez, HUMAN RESOURCE ASSISTANT 06/23/2021 M17.0 Bilateral primary osteoarthritis of knee Danamarie Ortolano, HUMAN RESOURCE ASSISTANT 06/21/2021 M17.0 Bilateral primary osteoarthritis of knee Mahsa Tracey Martinez, HUMAN RESOURCE ASSISTANT 06/14/2021 M17.0 Bilateral primary osteoarthritis of knee Mahsa Tracey Martinez, HUMAN RESOURCE ASSISTANT 06/13/2021 M17.11 Unilateral primary osteoarthriti s, right knee Sobeida Veliz PA-C 06/06/2021 M17.0 Bilateral primary osteoarthritis of knee Kalyan Dias.T. 05/17/2021 S83.281D Other tear of latera l meniscus, current injury, right knee, subsequent encounter Abraham Ocampo MD 05/17/2021 M17.0 Bilateral primary osteoarthritis of knee Abraham Ocampo MD 03/23/2021 M17.0 Bilateral primary osteoarthritis of knee Abraham Ocampo MD 03/23/2021 S83.281D Other tear of latera l meniscus, current injury, right knee, subsequent encounter Abraham Ocampo MD Plan of Treatment Future Appointment(s):* 07/21/2021 11:00 am - Mahsa Martinez PTA at Physical Therapy * 07/19/2021 1:30 pm - Kalyan Timmons P.T. at Physical Therapy Functional Status Description No Information Available Mental Status Description No Information Available Referrals Refer to Reason for Referral Status Appt Date Abraham Ocampo MD 05/23/21 Synvisc One RT Knee, no auth req per [facility] web,passed to Linda Dunn [address] [place] [address], [address] [place] [phone]
--- OUTSIDE RECORDS SUMMARY | 2021-10-07 20:20 | CCD | Continuity of Care Document ---
Author Author Macy MARTINEZ CAREER SERVICES COORDINATOR Organization Unknown Address [address] [place] [address] Phone [phone] Care Team Providers Care Police Magistrate Name Role Phone Jem Gomez AUTM [phone] Anibal Mitchell MD AUTM [phone] Problems Description No Information Available Social History [...] MD 10/21/2020 Fluzone High-Dose Quadrivalent 0.7 ml [facility] Administered Unknown Euthyrox 100mcg Tablets Take [...] Information Available Procedures Date Code Description Status 07/05/2021 94005 Therapeutic Procedure, Each 15 M inutes Completed 06/30/2021 11385 Therapeutic Procedure, Each 15 M inutes Completed 06/28/2021 58700 Therapeutic Procedure, Each 15 M inutes Completed 06/23/2021 69909 Therapeutic Procedure, Each 15 M inutes Completed 06/21/2021 12662 Therapeutic Procedure, Each 15 M inutes Completed 06/14/2021 24578 Therapeutic Procedure, Each 15 M inutes Completed 06/13/2021 84739 Inject/Drain Joint/Bursa Major C ompleted 06/06/2021 11957 Physical Therapy Eval - Low Comp lexity Completed 05/17/2021 00794 Office/Outpatient Established Mo d MDM 30-39 Min Completed 05/17/2021 49704 X-Ray Knee Complete W/Obliques & Tunnel And/Or Standing Views Completed 03/23/2021 72152 Office/Outpatient Established Mo d MDM 30-39 Min Completed 03/23/2021 68478 Inject/Drain Joint/Bursa Major C ompleted Medical Devices [...] knee S83.281D Oth tear of lat mensc, curre nt injury, right knee, subs Assessments Date Code Description Provider 07/05/2021 M17.0 Bilateral primary osteoarthritis of knee Mahsa Traceydandy Martinez, CAREER SERVICES COORDINATOR 06/30/2021 M17.0 Bilateral primary osteoarthritis of knee Kalyan Timmons P.T. 06/28/2021 M17.0 Bilateral primary osteoarthritis of knee Mahsa Tracey Martinez, CAREER SERVICES COORDINATOR 06/23/2021 M17.0 Bilateral primary osteoarthritis of knee Danamarie Ortolano, CAREER SERVICES COORDINATOR 06/21/2021 M17.0 Bilateral primary osteoarthritis of knee Mahsa Traceydandy Martinez, CAREER SERVICES COORDINATOR 06/14/2021 M17.0 Bilateral primary osteoarthritis of knee Mahsa Traceydandy Martinez, CAREER SERVICES COORDINATOR 06/13/2021 M17.11 Unilateral primary osteoarthriti s, right knee Sobeida Veliz PA-C 06/06/2021 M17.0 Bilateral primary osteoarthritis of knee Kalyan Timmons P.T. 05/17/2021 S83.281D Other tear of latera l [...] - Kalyan Timmons P.T. at Physical Therapy * 07/14/2021 11:00 am - Travon Chino, KAUSHIK at Physical Therapy * 07/12/2021 11:00 am - Mahsa Martinez PTA at Physical Therapy Functional Status Description No Information Available Mental Status Description No Information Available Referrals Refer to Reason for Referral Status Appt Date Abraham Ocampo MD 05/23/21 Synvisc One RT Knee, no auth req per [facility] web,passed to Linda Dunn [address] [place] [address], [address] [place] [address] [phone]
--- OUTSIDE RECORDS SUMMARY | 2021-10-07 20:20 | CCD | Continuity of Care Document ---
Author Author Macy GRAVES MD Organization Unknown Address [address] [place] [address] Phone [phone] Care Team Providers Care Induction Machine Operator Name Role Phone Jem Gomez AUTM [phone] Anibal Micthell MD AUTM [phone] Problems Description No Information Available Social History Type Date Description Comments Sex Unknown ETOH Use Occasionally consumes alcohol Tobacco Use Start: Unknown End: Unknown Patient is a former smoker Allergies and adverse reactions Description No Known Drug Allergies Medications Active Medications SIG Qnty Indications Ordering Provide r Date Synvisc 16mg/2ML Soln Prefill Syri nge right knee klf/cp 06/13/21 6ml Andrea Veliz MD Oxycodone HCL 5mg Tablets take 1 tablet by mouth every 4-6 hours as needed for pain, mdd 4 20tabs S83.281D Andrew Graves MD 10/21/2020 Fluzone High-Dose Quadrivalent 0.7 ml [facility] Administered Unknown Euthyrox 100mcg Tablets Take [...] Information Available Procedures Date Code Description Status 07/19/2021 54716 Therapeutic Procedure, Each 15 M inutes Completed 07/14/2021 55238 Therapeutic Procedure, Each 15 M inutes Completed 07/12/2021 45628 Therapeutic Procedure, Each 15 M inutes Completed 07/05/2021 94531 Therapeutic Procedure, Each 15 M inutes Completed 06/30/2021 66684 Therapeutic Procedure, Each 15 M inutes Completed 06/28/2021 57501 Therapeutic Procedure, Each 15 M inutes Completed 06/23/2021 25286 Therapeutic Procedure, Each 15 M inutes Completed 06/21/2021 76535 Therapeutic Procedure, Each 15 M inutes Completed 06/14/2021 06377 Therapeutic Procedure, Each 15 M inutes Completed 06/13/2021 63914 Inject/Drain Joint/Bursa Major C ompleted 06/06/2021 19984 Physical Therapy Eval - Low Comp lexity Completed 05/17/2021 02743 Office/Outpatient Established Mo d MDM 30-39 Min Completed 05/17/2021 58463 X-Ray Knee Complete W/Obliques & Tunnel And/Or Standing Views Completed 03/23/2021 25284 Office/Outpatient Established Mo d MDM 30-39 Min Completed 03/23/2021 12814 Inject/Drain Joint/Bursa Major C ompleted Medical Devices Description No Information Available Encounters Type Date Location Provider Dx Diagnosis Office Visit 06/13/2021 2:15p [place] Vel[place] PA-C M17.11 Unilateral primary osteoarthritis, right knee Office Visit 05/17/2021 8:45a Charley Ocampo MD S83.28 1D Oth tear of lat mensc, current injury, right knee, subs M17.0 Bilateral primary osteoarthr itis of knee Office Visit 03/23/2021 9:45a [place] Abraham Ocampo MD M17.0 Bilateral primary osteoarthritis of knee S83.281D Oth tear of lat kevin renae nt injury, right knee, subs Assessments Date Code Description Provider 07/19/2021 M17.0 Bilateral primary osteoarthritis of knee Kalyan Abel Iain P.T. 07/14/2021 M17.0 Bilateral primary osteoarthritis of knee Danamarie Ortolano, CHEESE COOKER 07/12/2021 M17.0 Bilateral primary osteoarthritis of knee Jyoti Scee P.T.A. 07/05/2021 M17.0 Bilateral primary osteoarthritis of knee Mahsa Tracey Martinez, CHEESE COOKER 06/30/2021 M17.0 Bilateral primary osteoarthritis of knee Kalyan Abel Iain P.T. 06/28/2021 M17.0 Bilateral primary osteoarthritis of knee Mahsa Tracey Martinez, CHEESE COOKER 06/23/2021 M17.0 Bilateral primary osteoarthritis of knee Danrodolforie Ortolano, CHEESE COOKER 06/21/2021 M17.0 Bilateral primary osteoarthritis of knee Mahsa Tracey Martinez, CHEESE COOKER 06/14/2021 M17.0 Bilateral primary osteoarthritis of knee Mahsa Tracey Martinez, CHEESE COOKER 06/13/2021 M17.11 Unilateral primary osteoarthriti s, right knee Sobeida Veliz PA-C 06/06/2021 M17.0 Bilateral primary osteoarthritis of knee Kalyan Abel Iain P.T. 05/17/2021 S83.281D Other tear of latera l meniscus, current injury, right knee, subsequent encounter Abraham Ocampo MD 05/17/2021 M17.0 Bilateral primary osteoarthritis of knee Abrahma Ocampo MD 03/23/2021 M17.0 Bilateral primary osteoarthritis of knee Abraham Ocampo MD 03/23/2021 S83.281D Other tear of latera l meniscus, current injury, right knee, subsequent encounter Abraham Ocampo MD Plan of Treatment No Information Available Functional Status Description No Information Available Mental Status Description No Information Available Referrals Refer to Reason for Referral Status Appt Date Abraham Ocampo MD 05/23/21 Synvisc One RT Knee, no auth req per [facility] web,passed to Linda Dunn [address] [facility], [address] [place] [address] [phone]
--- OUTSIDE RECORDS SUMMARY | 2021-10-07 20:20 | CCD | Continuity of Care Document ---
Author Author Macy MARTINEZ ICU REGISTERED NURSE Organization Unknown Address [address] [place] [address] Phone [phone] Care Team Providers Care Hematology Nurse Educator Name Role Phone Jem Gomez AUTM [phone] Anibal Mitchell MD AUTM [phone] Problems Description No Information Available Social History [...] MD 10/21/2020 Fluzone High-Dose Quadrivalent 0.7 ml [facility] Administered Unknown Euthyrox 100mcg Tablets Take [...] Available Procedures Date Code Description Status 07/05/2021 59779 Therapeutic Procedure, Each 15 M inutes Completed 06/30/2021 55527 Therapeutic Procedure, Each 15 M inutes Completed 06/28/2021 10608 Therapeutic Procedure, Each 15 M inutes Completed 06/23/2021 11780 Therapeutic Procedure, Each 15 M inutes Completed 06/21/2021 06520 Therapeutic Procedure, Each 15 M inutes Completed 06/14/2021 56516 Therapeutic Procedure, Each 15 M inutes Completed 06/13/2021 82121 Inject/Drain Joint/Bursa Major C ompleted 06/06/2021 70816 Physical Therapy Eval - Low Comp lexity Completed 05/17/2021 05274 Office/Outpatient Established Mo d MDM 30-39 Min Completed 05/17/2021 84121 X-Ray Knee Complete W/Obliques & Tunnel And/Or Standing Views Completed 03/23/2021 78597 Office/Outpatient Established Mo d MDM 30-39 Min Completed 03/23/2021 97213 Inject/Drain Joint/Bursa Major C ompleted Medical Devices [...] primary osteoarthritis of knee Mahsa Traceydandy Martinez, ICU REGISTERED NURSE 06/30/2021 M17.0 Bilateral primary osteoarthritis of knee Kalyan Timmons P.T. 06/28/2021 M17.0 Bilateral primary osteoarthritis of knee Mahsa Tracey Martinez, ICU REGISTERED NURSE 06/23/2021 M17.0 Bilateral primary osteoarthritis of knee Danamarie Ortolano, ICU REGISTERED NURSE 06/21/2021 M17.0 Bilateral primary osteoarthritis of knee Mahsa Traceydandy Martinez, ICU REGISTERED NURSE 06/14/2021 M17.0 Bilateral primary osteoarthritis of knee Mahsa Traceydandy Martinez, ICU REGISTERED NURSE 06/13/2021 M17.11 Unilateral primary osteoarthriti s, right [...] One RT Knee, no auth req per [facility] web,passed to Linda Dunn [address] [place] [address], [address] [place] [phone]
--- OUTSIDE RECORDS SUMMARY | 2021-10-07 20:20 | CCD | Continuity of Care Document ---
Author Author Macy DALTON [facility] Organization Unknown Address [address] [place] [address] Phone [phone] Care Team Providers Care Wooden Barrel Mechanic Name Role Phone Jem Gomez AUTM [phone] Anibal Mitchell MD AUTM [phone] Problems Description No Information Available Social History [...] Available Procedures Date Code Description Status 07/05/2021 98181 Therapeutic Procedure, Each 15 M inutes Completed 06/30/2021 87635 Therapeutic Procedure, Each 15 M inutes Completed 06/28/2021 39856 Therapeutic Procedure, Each 15 M inutes Completed 06/23/2021 15315 Therapeutic Procedure, Each 15 M inutes Completed 06/21/2021 32216 Therapeutic Procedure, Each 15 M inutes Completed 06/14/2021 88156 Therapeutic Procedure, Each 15 M inutes Completed 06/13/2021 64284 Inject/Drain Joint/Bursa Major C ompleted 06/06/2021 82870 Physical Therapy Eval - Low Comp lexity Completed 05/17/2021 97047 Office/Outpatient Established Mo d MDM 30-39 Min Completed 05/17/2021 58389 X-Ray Knee Complete W/Obliques & Tunnel And/Or Standing Views Completed 03/23/2021 10919 Office/Outpatient Established Mo d MDM 30-39 Min Completed 03/23/2021 22926 Inject/Drain Joint/Bursa Major C ompleted Medical Devices [...] primary osteoarthritis of knee Mahsa Tracey Martinez, DRYING MACHINE OPERATOR [employer]AR[employer] 06/30/2021 M17.0 Bilateral primary osteoarthritis of knee Kalyan Timmons P.T. 06/28/2021 M17.0 Bilateral primary osteoarthritis of knee Mahsa Tracey Martinez, DRYING MACHINE OPERATOR [employer]AR[employer] 06/23/2021 M17.0 Bilateral primary osteoarthritis of knee Danamarie Ortolano, DRYING MACHINE OPERATOR PACKAGE YARNS 06/21/2021 M17.0 Bilateral primary osteoarthritis of knee Mahsa Tracey Martinez, DRYING MACHINE OPERATOR P[employer]ARNS 06/14/2021 M17.0 Bilateral primary osteoarthritis of knee Mahsa Tracey Martinez, DRYING MACHINE OPERATOR PACKAGE YARNS 06/13/2021 M17.11 Unilateral primary osteoarthriti s, right [...] Therapy * 07/14/2021 11:00 am - Travon [place] PTA at Physical Therapy * 07/12/2021 11:00 am - Mahsa Martinez PTA at Physical Therapy Functional Status Description No Information Available Mental Status Description No Information Available Referrals Refer to Reason for Referral Status Appt Date Abraham Ocampo MD 05/23/21 Synvisc One RT Knee, no auth req per [facility] web,passed to Linda Dunn [address] [place] [address] [place] [phone]
--- OUTSIDE RECORDS SUMMARY | 2021-10-07 20:20 | CCD | Continuity of Care Document ---
Author Author Macy TAO P.T. Organization Unknown Address [address] [place] [address] [address] [place] [address] Phone [phone] Care Team Providers Care Family Practice Physician Name Role Phone Jem Gomez AUTM [phone] Anibal Mitchell MD AUTM [phone] Problems Description No Information Available Social History [...] Available Procedures Date Code Description Status 07/19/2021 21990 Therapeutic Procedure, Each 15 M inutes Completed 07/14/2021 63679 Therapeutic Procedure, Each 15 M inutes Completed 07/12/2021 87490 Therapeutic Procedure, Each 15 M inutes Completed 07/05/2021 93107 Therapeutic Procedure, Each 15 M inutes Completed 06/30/2021 70933 Therapeutic Procedure, Each 15 M inutes Completed 06/28/2021 35705 Therapeutic Procedure, Each 15 M inutes Completed 06/23/2021 12608 Therapeutic Procedure, Each 15 M inutes Completed 06/21/2021 86143 Therapeutic Procedure, Each 15 M inutes Completed 06/14/2021 77102 Therapeutic Procedure, Each 15 M inutes Completed 06/13/2021 28184 Inject/Drain Joint/Bursa Major C ompleted 06/06/2021 86935 Physical Therapy Eval - Low Comp lexity Completed 05/17/2021 55807 Office/Outpatient Established Mo d MDM 30-39 Min Completed 05/17/2021 01046 X-Ray Knee Complete W/Obliques & Tunnel And/Or Standing Views Completed 03/23/2021 85267 Office/Outpatient Established Mo d MDM 30-39 Min Completed 03/23/2021 76721 Inject/Drain Joint/Bursa Major C ompleted Medical Devices Description No Information Available Encounters Type Date Location Provider Dx Diagnosis Office Visit 06/13/2021 2:15p [place] Sobeida Veliz PA-C M17.11 Unilateral primary osteoarthritis, right knee Office Visit 05/17/2021 8:45a Charley Ocampo MD S83.28 1D Oth tear of lat mensc, current injury, right knee, subs M17.0 Bilateral primary osteoarthr itis of knee Office Visit 03/23/2021 9:45a [place] Abraham Ocampo MD M17.0 Bilateral primary osteoarthritis of knee S83.281D Oth tear of lat menscnasrine nt injury, right knee, subs Assessments Date Code Description Provider 07/19/2021 M17.0 Bilateral primary osteoarthritis of knee Kalyan Abel Iain P.T. 07/14/2021 M17.0 Bilateral primary osteoarthritis of knee Danamarie Ortolano, ADVANCED REGISTERED NURSE 07/12/2021 M17.0 Bilateral primary osteoarthritis of knee Jyoti Scee P.T.A. 07/05/2021 M17.0 Bilateral primary osteoarthritis of knee Mahsa Tracey Martinez, ADVANCED REGISTERED NURSE 06/30/2021 M17.0 Bilateral primary osteoarthritis of knee Kalyan Abel Iain P.T. 06/28/2021 M17.0 Bilateral primary osteoarthritis of knee Mahsa Tracey Martinez, ADVANCED REGISTERED NURSE 06/23/2021 M17.0 Bilateral primary osteoarthritis of knee Danrodolforie Ortolano, ADVANCED REGISTERED NURSE 06/21/2021 M17.0 Bilateral primary osteoarthritis of knee Mahsa Tracey Martinez, ADVANCED REGISTERED NURSE 06/14/2021 M17.0 Bilateral primary osteoarthritis of knee Mahsa Tracey Martinez, ADVANCED REGISTERED NURSE 06/13/2021 M17.11 Unilateral primary osteoarthriti [...] Description No Information Available Referrals Refer to Dr Reason for Referral Status Appt Date Abraham Ocampo MD 05/23/21 Synvisc One RT Knee, no auth req per [facility] web,passed to Linda fragoso. Created [address] [facility], [address] [place] [address] [phone]
--- OUTSIDE RECORDS SUMMARY | 2021-10-07 20:20 | CCD | Continuity of Care Document ---
Author Author [facility] Organization Unknown Address [address] [place] [address] Phone [phone] Care Team Providers Care Blindstitch Machine Operator Name Role Phone Jem Gomez AUTM [phone] Anibal Mitchell MD AUTM [phone] Problems Description No Information Available Social History [...] Available Procedures Date Code Description Status 07/19/2021 18128 Therapeutic Procedure, Each 15 M inutes Completed 07/14/2021 84556 Therapeutic Procedure, Each 15 M inutes Completed 07/12/2021 66910 Therapeutic Procedure, Each 15 M inutes Completed 07/05/2021 21441 Therapeutic Procedure, Each 15 M inutes Completed 06/30/2021 87111 Therapeutic Procedure, Each 15 M inutes Completed 06/28/2021 61117 Therapeutic Procedure, Each 15 M inutes Completed 06/23/2021 71455 Therapeutic Procedure, Each 15 M inutes Completed 06/21/2021 99109 Therapeutic Procedure, Each 15 M inutes Completed 06/14/2021 99335 Therapeutic Procedure, Each 15 M inutes Completed 06/13/2021 49432 Inject/Drain Joint/Bursa Major C ompleted 06/06/2021 53567 Physical Therapy Eval - Low Comp lexity Completed 05/17/2021 99105 Office/Outpatient Established Mo d MDM 30-39 Min Completed 05/17/2021 51139 X-Ray Knee Complete W/Obliques & Tunnel And/Or Standing Views Completed 03/23/2021 49925 Office/Outpatient Established Mo d MDM 30-39 Min Completed 03/23/2021 25368 Inject/Drain Joint/Bursa Major C ompleted Medical Devices Description No Information Available Encounters Type Date Location Provider Dx Diagnosis Office Visit 06/13/2021 2:15p [place] Sobeida Veliz PA-C M17.11 Unilateral primary osteoarthritis, right knee Office Visit 05/17/2021 8:45a Charley Ocampo MD S83.28 1D Oth tear of lat mensc, current injury, right knee, subs M17.0 Bilateral primary osteoarthr itis of knee Office Visit 03/23/2021 9:45a [place] Abraham Ocampo MD M17.0 Bilateral primary osteoarthritis of knee S83.281D Oth tear of lat menscnasrine nt injury, right knee, subs Assessments Date Code Description Provider 07/19/2021 M17.0 Bilateral primary osteoarthritis of knee Kalyan Abel Iain P.T. 07/14/2021 M17.0 Bilateral primary osteoarthritis of knee Danamarie Ortolano, DIRECTOR OF FINANCIAL PLANNING 07/12/2021 M17.0 Bilateral primary osteoarthritis of knee Jyoti Scee P.T.A. 07/05/2021 M17.0 Bilateral primary osteoarthritis of knee Mahsa Tracey Martinez, DIRECTOR OF FINANCIAL PLANNING 06/30/2021 M17.0 Bilateral primary osteoarthritis of knee Kalyan Abel Iain P.T. 06/28/2021 M17.0 Bilateral primary osteoarthritis of knee Mahsa Tracey Martinez, DIRECTOR OF FINANCIAL PLANNING 06/23/2021 M17.0 Bilateral primary osteoarthritis of knee Danrodolforie Ortolano, DIRECTOR OF FINANCIAL PLANNING 06/21/2021 M17.0 Bilateral primary osteoarthritis of knee Mahsa Tracey Martinez, DIRECTOR OF FINANCIAL PLANNING 06/14/2021 M17.0 Bilateral primary osteoarthritis of knee Mahsa Tracey Martinez, DIRECTOR OF FINANCIAL PLANNING 06/13/2021 M17.11 Unilateral primary osteoarthriti s, right [...] One RT Knee, no auth req per [facility] web,passed to Linda fragoso. Created [address] [facility], [address] [place] [address] [phone]
--- OUTSIDE RECORDS SUMMARY | 2021-10-07 20:20 | CCD | Continuity of Care Document ---
Author Author Macy GILL Organization Unknown Address [address] [place] [address] [place] [address] Phone [phone] Care Team Providers Care Shipping Technician Name Role Phone Jem Gomez AUTM [phone] Anibal Mitchell MD AUTM [phone] Problems Description No Information Available Social History [...] MD 10/21/2020 Fluzone High-Dose Quadrivalent 0.7 ml [facility] Administered Unknown Euthyrox 100mcg Tablets Take [...] Available Procedures Date Code Description Status 07/19/2021 59293 Therapeutic Procedure, Each 15 M inutes Completed 07/14/2021 48339 Therapeutic Procedure, Each 15 M inutes Completed 07/12/2021 97285 Therapeutic Procedure, Each 15 M inutes Completed 07/05/2021 30320 Therapeutic Procedure, Each 15 M inutes Completed 06/30/2021 42834 Therapeutic Procedure, Each 15 M inutes Completed 06/28/2021 94855 Therapeutic Procedure, Each 15 M inutes Completed 06/23/2021 30850 Therapeutic Procedure, Each 15 M inutes Completed 06/21/2021 90260 Therapeutic Procedure, Each 15 M inutes Completed 06/14/2021 18188 Therapeutic Procedure, Each 15 M inutes Completed 06/13/2021 88930 Inject/Drain Joint/Bursa Major C ompleted 06/06/2021 20191 Physical Therapy Eval - Low Comp lexity Completed 05/17/2021 11942 Office/Outpatient Established Mo d MDM 30-39 Min Completed 05/17/2021 59105 X-Ray Knee Complete W/Obliques & Tunnel And/Or Standing Views Completed 03/23/2021 12627 Office/Outpatient Established Mo d MDM 30-39 Min Completed 03/23/2021 98533 Inject/Drain Joint/Bursa Major C ompleted Medical Devices Description No Information Available Encounters Type Date Location Provider Dx Diagnosis Office Visit 06/13/2021 2:15p [place] Vel[place] PA-C M17.11 Unilateral primary osteoarthritis, right knee Office Visit 05/17/2021 8:45a Charley Ocampo MD S83.28 1D Oth tear of lat mensc, current injury, right knee, subs M17.0 Bilateral primary osteoarthr itis of knee Office Visit 03/23/2021 9:45a [place] Abraham Ocampo MD M17.0 Bilateral primary osteoarthritis of knee S83.281D Oth tear of lat mensckevin nt injury, right knee, subs Assessments Date Code Description Provider 07/19/2021 M17.0 Bilateral primary osteoarthritis of knee Kalyan Abel Iain P.T. 07/14/2021 M17.0 Bilateral primary osteoarthritis of knee Danamarie Ortolano, CAMERA SYSTEMS ENGINEER 07/12/2021 M17.0 Bilateral primary osteoarthritis of knee Jyoti Scee P.T.A. 07/05/2021 M17.0 Bilateral primary osteoarthritis of knee Mahsa Tracey Martinez, CAMERA SYSTEMS ENGINEER 06/30/2021 M17.0 Bilateral primary osteoarthritis of knee Kalyan Abel Iain P.T. 06/28/2021 M17.0 Bilateral primary osteoarthritis of knee Mahsa Tracey Martinez, CAMERA SYSTEMS ENGINEER 06/23/2021 M17.0 Bilateral primary osteoarthritis of knee Danrodolforie Ortolano, CAMERA SYSTEMS ENGINEER 06/21/2021 M17.0 Bilateral primary osteoarthritis of knee Mahsa Tracey Martinez, CAMERA SYSTEMS ENGINEER 06/14/2021 M17.0 Bilateral primary osteoarthritis of knee Mahsa Tracey Martinez, CAMERA SYSTEMS ENGINEER 06/13/2021 M17.11 Unilateral primary osteoarthriti s, right [...] One RT Knee, no auth req per [facility] web,passed to Linda Dunn [address] [facility], [address] [place] [address] [phone]
--- OUTSIDE RECORDS SUMMARY | 2021-10-07 20:20 | CCD | Continuity of Care Document ---
Author Author [facility]acy [facility] Organization Unknown Address [address] [place] [address] [address] [place] [address] Phone [phone] Care Team Providers Care Easement Worker Name Role Phone Jem Gomez AUTM [phone] Anibal Mitchell MD AUTM [phone] Problems Description No Information Available Social History [...] Available Procedures Date Code Description Status 07/05/2021 04593 Therapeutic Procedure, Each 15 M inutes Completed 06/30/2021 57750 Therapeutic Procedure, Each 15 M inutes Completed 06/28/2021 11758 Therapeutic Procedure, Each 15 M inutes Completed 06/23/2021 03329 Therapeutic Procedure, Each 15 M inutes Completed 06/21/2021 25135 Therapeutic Procedure, Each 15 M inutes Completed 06/14/2021 13885 Therapeutic Procedure, Each 15 M inutes Completed 06/13/2021 27836 Inject/Drain Joint/Bursa Major C ompleted 06/06/2021 17488 Physical Therapy Eval - Low Comp lexity Completed 05/17/2021 46740 Office/Outpatient Established Mo d MDM 30-39 Min Completed 05/17/2021 45824 X-Ray Knee Complete W/Obliques & Tunnel And/Or Standing Views Completed 03/23/2021 95043 Office/Outpatient Established Mo d MDM 30-39 Min Completed 03/23/2021 58821 Inject/Drain Joint/Bursa Major C ompleted Medical Devices [...] primary osteoarthritis of knee Mahsa Tracey Martinez, AIRPLANE WOODWORKER 06/30/2021 M17.0 Bilateral primary osteoarthritis of knee Kalyan Timmons P.T. 06/28/2021 M17.0 Bilateral primary osteoarthritis of knee Mahsa Tracey Martinez, AIRPLANE WOODWORKER 06/23/2021 M17.0 Bilateral primary osteoarthritis of knee Danamarie Ortolano, AIRPLANE WOODWORKER 06/21/2021 M17.0 Bilateral primary osteoarthritis of knee Mahsa Tracey Martinez, AIRPLANE WOODWORKER 06/14/2021 M17.0 Bilateral primary osteoarthritis of knee Mahsa Tracey Martinez, AIRPLANE WOODWORKER 06/13/2021 M17.11 Unilateral primary osteoarthriti s, right [...] Therapy * 07/14/2021 11:00 am - Travon Chino PTA at Physical Therapy * 07/12/2021 11:00 am - Mahsa Martinez PTA at Physical Therapy Functional Status Description No Information Available Mental Status Description No Information Available Referrals Refer to Reason for Referral Status Appt Date Abraham Ocampo MD 05/23/21 Synvisc One RT Knee, no auth req per [facility] [place] web,passed to Linda Dunn [address] [place] [address] [place] [phone]
--- OUTSIDE RECORDS SUMMARY | 2021-10-07 20:20 | CCD | Continuity of Care Document ---
Author Author Macy [facility] Organization Unknown Address [address] [place] [address] [address] [place] [address] Phone [phone] Care Team Providers Care Dairy Specialist Name Role Phone Jem Gomez AUTM [phone] Anibal Mitchell MD AUTM [phone] Problems Description No Information Available Social History [...] Available Procedures Date Code Description Status 07/19/2021 68653 Therapeutic Procedure, Each 15 M inutes Completed 07/14/2021 68733 Therapeutic Procedure, Each 15 M inutes Completed 07/12/2021 82641 Therapeutic Procedure, Each 15 M inutes Completed 07/05/2021 66358 Therapeutic Procedure, Each 15 M inutes Completed 06/30/2021 03893 Therapeutic Procedure, Each 15 M inutes Completed 06/28/2021 39971 Therapeutic Procedure, Each 15 M inutes Completed 06/23/2021 30027 Therapeutic Procedure, Each 15 M inutes Completed 06/21/2021 87013 Therapeutic Procedure, Each 15 M inutes Completed 06/14/2021 27855 Therapeutic Procedure, Each 15 M inutes Completed 06/13/2021 31197 Inject/Drain Joint/Bursa Major C ompleted 06/06/2021 01967 Physical Therapy Eval - Low Comp lexity Completed 05/17/2021 48929 Office/Outpatient Established Mo d MDM 30-39 Min Completed 05/17/2021 18680 X-Ray Knee Complete W/Obliques & Tunnel And/Or Standing Views Completed 03/23/2021 11710 Office/Outpatient Established Mo d MDM 30-39 Min Completed 03/23/2021 08752 Inject/Drain Joint/Bursa Major C ompleted Medical Devices Description No Information Available Encounters Type Date Location Provider Dx Diagnosis Office Visit 06/13/2021 2:15p [place] Sobeida Veliz PA-C M17.11 Unilateral primary osteoarthritis, right knee Office Visit 05/17/2021 8:45a Charley Ocampo MD S83.28 1D Oth tear of lat mensc, current injury, right knee, subs M17.0 Bilateral primary osteoarthr itis of knee Office Visit 03/23/2021 9:45a [place] Abraham Ocampo MD M17.0 Bilateral primary osteoarthritis of knee S83.281D Oth tear of lat menscnasrine nt injury, right knee, subs Assessments Date Code Description Provider 07/14/2021 M17.0 Bilateral primary osteoarthritis of knee Danamarie Ortolano, DIAMOND CLEANER 07/12/2021 M17.0 Bilateral primary osteoarthritis of knee Jyoti Scee P.T.A. 07/05/2021 M17.0 Bilateral primary osteoarthritis of knee Mahsa Tracey Martinez, DIAMOND CLEANER 06/30/2021 M17.0 Bilateral primary osteoarthritis of knee Kalyan BrunerFalguni Timmons P.T. 06/28/2021 M17.0 Bilateral primary osteoarthritis of knee Mahsa Tracey Martinez, DIAMOND CLEANER 06/23/2021 M17.0 Bilateral primary osteoarthritis of knee Danamarie Ortolano, DIAMOND CLEANER 06/21/2021 M17.0 Bilateral primary osteoarthritis of knee Mahsa Tracey Martinez, DIAMOND CLEANER 06/14/2021 M17.0 Bilateral primary osteoarthritis of knee Mahsa Tracey Martinez, DIAMOND CLEANER 06/13/2021 M17.11 Unilateral primary osteoarthriti s, right knee Sobeida Veliz PA-C 06/06/2021 M17.0 Bilateral primary osteoarthritis of knee Kalyan JFalguni Timmons P.T. 05/17/2021 S83.281D Other tear of [...] RT Knee, no auth req per [facility] web,passed to Linda Dunn [address] [facility], [address] [place] [phone]
[2021-10-07] MEDS ORDERED: D 101000 (20:21)
[2021-10-07] MEDS ORDERED: OMEP-218 (20:21)
--- OUTSIDE RECORDS SUMMARY | 2021-10-07 21:42 | CCD ---
Author Author [facility] Organization [facility] Address Unknown Phone Unavailable Care Team Providers Care Php Mysql Developer Name Role Phone Zohreh Ocampo MD Unavailable Unavailable Zohreh Ocampo MD Unavailable Unavailable Zohreh Ocampo MD Unavailable Unavailable Zohreh Ocampo MD Unavailable Unavailable Zohreh Ocampo MD Unavailable Unavailable Zohreh Ocampo MD Unavailable Unavailable Zohreh Ocampo MD Unavailable Unavailable Zohreh Ocampo MD Unavailable Unavailable Zohreh Ocampo MD Unavailable Unavailable Zohreh Ocampo MD Unavailable Unavailable Zohreh Ocampo MD Unavailable Unavailable Fish, [facility], [facility] Unavailable Unavailabl e Fish, Amanda [facility], PA-C Unavailable Unavailabl e Fish, Amanda [facility], PA-C Unavailable Unavailabl e Fish, Amanda [facility], PA-C Unavailable Unavailabl e Fish, [facility] Unavailable Unavailabl e Fish, [facility] Unavailable Unavailabl e Fish, [facility] Unavailable Unavailabl e Fish, Amanda [facility] Unavailable Unavailabl e Fish, [facility] Unavailable Unavailabl e Fish, [facility] Unavailable Unavailabl e Fish, [facility] Unavailable Unavailabl e Fish, Amanda [facility], PA-C Unavailable Unavailabl e Fish, [facility], PA-C Unavailable Unavailabl e Fish, [facility], PA-C Unavailable Unavailabl e Fish, [facility], PA-C Unavailable Unavailabl e Fish, [facility], PA-C Unavailable Unavailabl e Fish, [facility], PA-C Unavailable Unavailabl e Fish, [facility], PA-C Unavailable Unavailabl e Fish, [facility], PA-C Unavailable Unavailabl e Fish, [facility], PA-C Unavailable Unavailabl e Fish, [facility], PA-C Unavailable Unavailabl e Fish, [facility], PA-C Unavailable Unavailabl e Fish, [facility], PA-C Unavailable Unavailabl e Fish, [facility], PA-C Unavailable Unavailabl e Fish, [facility], PA-C Unavailable Unavailabl e Fish, [facility], PA-C Unavailable Unavailabl e Fish, [facility], PA-C Unavailable Unavailabl e Fish, [facility], PA-C Unavailable Unavailabl e Fish, [facility], PA-C Unavailable Unavailabl e Fish, [facility], PA-C Unavailable Unavailabl e Fish, [facility], PA-C Unavailable Unavailabl e Fish, [facility], PA-C Unavailable Unavailabl e Fish, [facility], PA-C Unavailable Unavailabl e Fish, [facility], PA-C Unavailable Unavailabl e Fish, [facility], PA-C Unavailable Unavailabl e Fish, [facility], PA-C Unavailable Unavailabl e EBONIEHERBRYANT REID Unavailable [...] is protected by Article 27-F of the [facility] Public Health law. If you continue you may have access to information: Regarding HIV / AIDS; Provided by facilities licensed or operated by the [facility] Office of Mental Health; or Provided by the [facility] Office for People With Developmental Disabilities. If such information is present, then the following [facility] mandated warning applies: This information [...] [facility]) father Unknown Male Problem [facility] ([facility]) Encounters Encounter Providers Location Date Indications Data Source(s ) Office Visit Attender: Sobeida BENSON PA-C Physical Therapy 06/13/2021 02:15:00 PM EDT [facility] ([facility]) Outpatient Attender: Abraham Ocampo MD Physical Therapy 08:45:00 AM EDT [facility] ([facility]) Outpatient Attender: Abraham Ocampo MD Physical Therapy 04/2021 09:45:00 AM EDT [facility] ([facility]) Office Visit Attender: BRYANT CLARK Physical Therapy 12/08/2020 02:30:00 PM EST [facility] ([facility]) Office Visit Attender: NEAL GRAVES MD Physical Therapy 10:15:00 AM EST [facility] ([facility]) Office Visit Attender: BRYANT CLARK Physical Therapy 11/02/2020 09:30:00 AM EST [facility] ([facility]) Outpatient Attender: NEAL GRAVES MD Physical Therapy 09:30:00 AM EST [facility] ([facility]) OFFICE OUTPATIENT VISIT 15 MINUTES Attender: BRYANT CLARK Physical Therapy 10/10/2020 12:00:00 PM EST [facility] ([facility]) OFFICE OUTPATIENT VISIT 15 MINUTES Attender: NEAL GRAVES MD Physical Therapy 08/18/2020 09:30:00 AM EDT [facility] ([facility]) Immunizations Vaccine Date Status Description Data Source(s) COVID-19 VACCINE Pfizer 09/19/2021 12:00:00 AM EDT completed [facility] Vaccine Series Complete: YESThis Data wa s Submitted to [facility] [employer]. COVID-19 VACCINE Pfizer 01/05/2021 12:00:00 AM EST completed [facility] Vaccine Series Complete: YESThis Data wa s Submitted to [facility] [employer]. COVID-19 VACCINE Pfizer 12/15/2020 12:00:00 AM EST completed [facility] Vaccine Series Complete: NOThis Data was Submitted to [facility] [employer]. Medications Medication Brand Name Start Date Product Form Dose Route Admi nistrative Instructions Pharmacy Instructions Status Indications Reaction Description Data Source(s) 2 ML HYLAN G-F 20 8 MG/ML Prefilled Syringe [Synvisc] Synvis c 06/13/2021 12:00:00 AM EDT active M [facility] ([facility] ) Oxycodone Hydrochloride 5 MG Oral Tablet Oxycodone HCL 10/21/2020 12:00:00 AM EST ORAL active [facility] ([facility] ) Oxycodone Hydrochloride 5 MG Oral Capsule Oxycodone HCL 10/20/2020 12:00:00 AM EST ORAL completed [facility] ([facility] ) Oxycodone Hydrochloride 5 MG Oral Capsule Oxycodone HCL 10/17/2020 12:00:00 AM EST ORAL completed [facility] ([facility] ) 5-325 mg 10/10/2020 12:00:00 AM EST tablet 12 TAKE ONE TABLET BY MOUTH EVERY SIX HOURS NEEDED FOR PAIN. MAX DAILY DOSE=FOUR TABLETS TAKE ONE TABLET BY MOUTH EVERY SIX HOURS NEEDED FOR PAIN. MAX DAILY DOSE=FOUR TABLETS SOLD: 10/10/2020 [facility] Insurance Providers Payer name Policy type / Coverage type Policy ID Covered libertarian ID Covered libertarian's relationship to rodriguez Policy Rodriguez Plan Information MVP (pr) Commercial [id number] Self [id number] MVP (pr) Commercial [id number] Self [id number] MVP (pr) Commercial [id number] Self [id number] MVP (pr) Commercial [id number] Self [id number] MEDICARE 4 [id number] 1 [id number] A MEDICARE [id number] SP [id number] A Medicare [place] Med[place] Part B [id number] Self [id number] [place] Med[place]ap Part B [id number] Self [id number] [place] Med[place]ap Part B [id number] Self [id number] Medicare [place] Med[place]ap Part B [id number] Self [id number] GEOSPATIAL PROGRAM MANAGEMENT OFFICER [id number] MEDICARE BLUE PPO [id number] SP [id number] HUMANA GOLD [id number] SP [id number] HUMANA PPO [id number] SP [id number] [employer] Commercial [id number] Self [id number] [employer] Commercial [id number] Self [id number] A[employer] HE[employer] CARE OPTIONS [id number] SP [id number] Medicare Natl Gov't Servi Medicare Primary [id number] Self SELF PAY 2 UNAVAILABLE 1 UNAVAILA BLE [facility] 2 [id number] 1 [id number] [facility] 2 [id number] [facility] [id number] SP [id number] A [facility] O [id number] S [id number] MEDICARE COMPLETE [id number] SP [id number] MEDICARE C [id number] S [id number] [facility] MCRO [id number] SP [id number] MEDICARE BLUE PPO [id number] SP [id number] MEDICARE BLUE PPO [id number] SP [id number] EXCELLUS BCBS B [id number] S [id number] [id number] EXCELLUS BCBS B [id number] S VYM [id number] MEDICARE C UNAVAILABLE [id number] S UNAVAILA BLE Blue Shield [facility] Commercial [id number] Self [id number] MEDICARE BLUE PPO 306 [id number] SP [id number] BS Medicare Blue Ppo/Hmo Commercial [id number] Self [id number] BS Medicare Blue Ppo/Hmo Commercial [id number] Self [id number] Problems, Conditions, and Diagnoses No Information Surgeries/Procedures Procedure Description Date Indications Data Source(s) THERAPEUTIC PX 1/> AREAS EACH 15 MIN EXERCISES 021 12:00:00 AM EDT [facility] ([facility] ) THERAPEUTIC PX 1/> AREAS EACH 15 MIN EXERCISES 021 12:00:00 AM EDT [facility] ([facility] ) THERAPEUTIC PX 1/> AREAS EACH 15 MIN EXERCISES 021 12:00:00 AM EDT [facility] ([facility] ) THERAPEUTIC PX 1/> AREAS EACH 15 MIN EXERCISES 021 12:00:00 AM EDT [facility] ([facility] ) THERAPEUTIC PX 1/> AREAS EACH 15 MIN EXERCISES 021 12:00:00 AM EDT [facility] ([facility] ) THERAPEUTIC PX 1/> AREAS EACH 15 MIN EXERCISES 021 12:00:00 AM EDT [facility] ([facility] ) THERAPEUTIC PX 1/> AREAS EACH 15 MIN EXERCISES 021 12:00:00 AM EDT [facility] ([facility] ) THERAPEUTIC PX 1/> AREAS EACH 15 MIN EXERCISES 021 12:00:00 AM EDT [facility] ([facility] ) THERAPEUTIC PX 1/> AREAS EACH 15 MIN EXERCISES 021 12:00:00 AM EDT [facility] ([facility] ) ARTHROCENTESIS ASPIR&/INJECTION MAJOR JT/BURSA 12:00:00 AM EDT [facility] ([facility] ) Physical Therapy Eval - Low Complexity 06/06/2021 12:0 0:00 AM EDT [facility] ([facility] ) RADIOLOGIC EXAM KNEE COMPLETE 4/MORE VIEWS 05/17/2021 12:00:00 AM EDT [facility] ([facility] ) OFFICE OUTPATIENT VISIT 25 MINUTES 05/17/2021 12:00:00 AM EDT [facility] ([facility] ) RADIOLOGIC EXAM KNEE COMPLETE 4/MORE VIEWS 05/17/2021 12:00:00 AM EDT [facility] ([facility] ) ARTHROCENTESIS ASPIR&/INJECTION MAJOR JT/BURSA 021 12:00:00 AM EDT [facility] ([facility] ) OFFICE OUTPATIENT VISIT 25 MINUTES 03/23/2021 12:00:00 AM EDT [facility] ([facility] ) ARTHROCENTESIS ASPIR&/INJECTION MAJOR JT/BURSA 021 12:00:00 AM EDT [facility] ([facility]) ARTHROCENTESIS ASPIR&/INJECTION MAJOR JT/BURSA 021 12:00:00 AM EDT [facility] ([facility] ) X-Ray Humerus Two Views 12/08/2020 12:00:00 AM EST [facility] ([facility]) X-Ray Humerus Two Views 11/02/2020 12:00:00 AM EST [facility] ([facility]) ARTHROCENTESIS ASPIR&/INJECTION MAJOR JT/BURSA 020 12:00:00 AM EST [facility] ([facility]) RADIOLOGIC EXAMINATION KNEE 1/2 VIEWS 10/17/2020 12:00 :00 AM EST [facility] ([facility]) CLTX PROXIMAL HUMERAL FRACTURE W/O MANIPULATION 2019 12:00:00 AM EST [facility] ([facility]) RADIOLOGIC EXAMINATION KNEE 1/2 VIEWS 08/18/2020 12:00 :00 AM EDT [facility] ([facility]) MRI Upper Extremity Any Joint 08/10/2020 12:00:00 AM E DT [facility] ([facility]) Results ID Date Data Source [id number] 12/29/2020 12:00:00 AM EST [facility] Neal Graves MD Patient Name: CHEN ROJAS [id number] [facility] Date of : 1950 201 Date of Exam: 12/29/2020[place]O [place] [id number]#: Fax: [phone] EXAM: MRI FEMUR RIGHT WITHOUT&WITH [...] short axis. Clinical correlation suggested.Accredited by the [employer] [employer] in MR.Mehran Hillman, PEDRO/Zeb you for referring CHEN Kumar TESSASUZIE to our office. Electronically Signed - MEHRAN HILLMAN MD 12/29/20 18:04 Name Value Range Interpretation Code Description Data Yina rce(s) Supporting Document(s) ID Date Data Source [id number] 12/16/2020 01:00:00 PM EST [facility] ([facility]) Name Value Range Interpretation Code Description Data Yina rce(s) Supporting Document(s) Creatinine For GFR 0.70 mg/dL 0.55-1.30 [facility] ([facility]) Glomerular Filtration Rate Laboratory test result [facility] ([facility]) <content>Units are mL/min/1.73 m2</content>
<content></content>
<content>Chronic Kidney Disease Staging per NKF:</content>
<content></content>
<content>Stage I & II GFR >=60 Normal to Mildly Decreased</content>
<content>Stage III GFR 30- 59 Moderately Decreased</content>
<content>Stage IV GFR 15-29 Severely Decreased</content>
<content>Stage V GFR <15 Very Little GFR Left</content>
<content>ESRD GFR <15 on SHIPPING TRACK SUPERVISOR</content>
<content></content> ID Date Data Source [id number] 12/16/2020 01:00:00 PM EST [facility] ([facility]) Name Value Range Interpretation Code Description Data Yina rce(s) Supporting Document(s) Urea nitrogen [Mass/volume] in Serum or Plasma 9 mg/dL 7-18 [facility] ([facility]) ID Date Data Source [id number] 11/16/2020 12:00:[address] [facility]logy Imaging Neal Graves MD Patient Name: CHEN ROJAS [id number] [facility] Date of : 1950 Date of Exam: 11/16/2020[place]O [place] [id number]#: Fax: [phone] EXAM: MRI KNEE RIGHT WITHOUT [...] 2 cm sized Sherman's cyst.Accredited by the [employer] [place] [employer] in MR.ANAND Garcia/Zeb you for referring CHEN Kumar TESSASUZIE to our office. Electronically Signed - GAGAN DE LEÓN DO 11/21/20 13:13 Name Value Range Interpretation Code Description Data Yina rce(s) Supporting Document(s) Procedure Social History No Information Vital Signs ID Date Data Source UNK Name Value Range Interpretation Code Description Data Source(s) Body temperature 96.4 [degF] 96.4 [degF] [facility] ([facility]) Body temperature 97.1 [degF] 97.1 [degF] [facility] ([facility]) Body mass index (BMI) [Ratio] 34.6 kg/m2 34.6 k g/m2 [facility] Body height 60 [in_i] 60 [in_i] [facility] ([facility]) 5'0" Body weight 177.00 [lb_av] 177.00 [lb_av] [facility] ([facility])
[2021-10-07] MEDS ORDERED: BOOSTRIX/ADACEL VACCINE (DIPHTH/PERTUSS/ACELL/TETANUS) 0.5ML SYR IM ONE (23:00)
[2021-10-07 23:38] LABS: BASO # 0.1 10^3/uL (0.0-0.2); BASO % 0.8 % (0.0-1.0); EOS # 0.1 10^3/uL (0.0-0.5); EOS % 0.9 % (0.0-3.0); HEMATOCRIT 38.3 % (36.0-47.0); HEMOGLOBIN 12.4 g/dl (12.0-15.5); LYMPH % 38.9 % (24.0-44.0); MEAN CORPUSCULAR HGB CONC 32.4 g/dl (32.0-36.5); MEAN CORPUSCULAR VOLUME 83.3 fl (80.0-96.0); MONO # 0.6 10^3/uL (0.0-0.8); MONO % 8.2 % (2.0-8.0); NEUTROPHILS # 3.9 10^3/uL (1.5-8.5); NEUTROPHILS % 51.1 % (36.0-66.0); PLATELET COUNT, AUTOMATED 316 10^3/uL (150-450); WHITE BLOOD COUNT 7.7 10^3/uL (4.0-10.0)
[2021-10-08 00:02] LABS: CK-MB VALUE MASS < 1.0 NG/ML (<3.6); CPK CREATINE PHOSPHOKINASE 62 U/L (26-192); MB/CK RELATIVE INDEX 1.61 (< OR =4); TROPONIN I < 0.02 NG/ML (< 0.10)
--- NOTE | 2021-10-08 00:02 | REPVR ---
PROCEDURE INFORMATION: Exam: XR Chest Exam date and time: 10/07/2021 11:07 PM Age: 71 years old Clinical indication: Other: HTN TECHNIQUE: Imaging protocol: XR of the chest. Views: 2 views. COMPARISON: CR Shoulder, complete 2020-10-08 05:15 FINDINGS: Lungs: Unremarkable. No consolidation. Pleural spaces: Unremarkable. No pleural effusion. No pneumothorax. Heart/Mediastinum: Unremarkable. No cardiomegaly. Bones/joints: Unremarkable. IMPRESSION: No acute findings. Electronically signed by: Emmanuel Ovalle On 10/08/2021 00:02:21 AM
[2021-10-08 00:14] LABS: ALBUMIN 3.3 GM/DL (3.2-5.2); ALT/SGPT 34 U/L (12-78); BILIRUBIN,DIRECT 0.2 MG/DL (0.0-0.2); BILIRUBIN,TOTAL 0.6 MG/DL (0.2-1.0); BLOOD UREA NITROGEN 11 MG/DL (7-18); CARBON DIOXIDE LEVEL 25 MEQ/L (21-32); CHLORIDE LEVEL 107 MEQ/L (98-107); CREATININE FOR GFR 0.66 MG/DL (0.55-1.30); GLOMERULAR FILTRATION RATE > 60.0 (>45); GLUCOSE, FASTING 103 MG/DL (70-100); LIPASE 123 U/L (73-393); POTASSIUM SERUM 3.8 MEQ/L (3.5-5.1); SODIUM LEVEL 141 MEQ/L (136-145); TOTAL PROTEIN 7.4 GM/DL (6.4-8.2)
[2021-10-08 00:43] VITALS: BP 182/90
[2021-10-08] MEDS ORDERED: LISI10TA22 PO (01:12)
[2021-10-08 01:14] VITALS: BP 182/90
--- NOTE | 2021-10-08 08:16 | ECGEPIP ---
[facility] - ED Test Date: 2021-10-07 Pat Name: CHEN ROJAS Department: Room: - Gender: Female Cut Off Saw Operator Metal: [facility] : 1950 Requested By: SHANE Hayden PA-C Order Number: [id number] Reading MD: Dalia Curry Measurements Intervals [place] Rate: 88 P: 56 WV: 166 QRS: 20 QRSD: 78 T: 15 QT: 372 QTc: 450 Interpretive Statements Normal sinus rhythm NSTTW abnormalities No prior Electronically Signed on 10-08-2021 8:15:44 EST by Dalia Curry
== END 2021-10-08 02:16 | disposition home or self-care (01) ==
LOC: M ED 20:07
DX: S61.317A Laceration without foreign body of left little finger with damage to nail, initial encounter (principal); I10 Essential (primary) hypertension; E78.5 Hyperlipidemia, unspecified; E11.9 Type 2 diabetes mellitus without complications; Z98.84 Bariatric surgery status; Y92.009 Unspecified place in unspecified non-institutional (private) residence as the place of occurrence of the external cause; Y93.G1 Activity, food preparation and clean up; Y99.9 Unspecified external cause status; W27.4XXA Contact with kitchen utensil, initial encounter; W26.9XXA Contact with unspecified sharp object(s), initial encounter; Z79.899 Other long term (current) drug therapy

== ENCOUNTER → 2022-07-02 | Outpatient (CLI) | payer OTHER ==
[~2022-07-02] MED LIST changes: +D 101000; +LISI10TA22 PO; +OMEP-173
[2022-07-02 11:06] LABS: HEMATOCRIT 38.3 % (36.0-47.0); HEMOGLOBIN 11.9 g/dl (12.0-15.5); MEAN CORPUSCULAR HEMOGLOBIN 26.5 pg (27.0-33.0); MEAN CORPUSCULAR HGB CONC 31.1 g/dl (32.0-36.5); MEAN CORPUSCULAR VOLUME 85.3 fl (80.0-96.0); PLATELET COUNT, AUTOMATED 275 10^3/uL (150-450); RED BLOOD COUNT 4.49 10^6/uL (4.00-5.40); WHITE BLOOD COUNT 4.8 10^3/uL (4.0-10.0)
[2022-07-02 11:43] LABS: HEMOGLOBIN A1c 5.4 %
[2022-07-02 11:45] LABS: ALBUMIN 3.2 GM/DL (3.2-5.2); ALT/SGPT 25 U/L (12-78); BILIRUBIN,TOTAL 0.5 MG/DL (0.2-1.0); BLOOD UREA NITROGEN 11 MG/DL (7-18); CALCIUM LEVEL 9.1 MG/DL (8.8-10.2); CARBON DIOXIDE LEVEL 28 MEQ/L (21-32); CHLORIDE LEVEL 109 MEQ/L (98-107); CHOLESTEROL LEVEL 165 MG/DL (<200); CHOLESTEROL RISK RATIO 2.037 (<5); CREATININE FOR GFR 0.72 MG/DL (0.55-1.30); FERRITIN 9 NG/ML (8-252); FOLATE 15.9 NG/ML (>5.4); FREE T3 2.6 PG/ML (2.2-4.0); FREE T4 1.18 NG/DL (0.76-1.46); GLOMERULAR FILTRATION RATE > 60.0 (>39); GLUCOSE, FASTING 98 MG/DL (70-100); HDL CHOLESTEROL 81 MG/DL (>40); IRON (FE) 106 UG/DL (50-170); LDL CHOLESTEROL 64 MG/DL (<100); MAGNESIUM LEVEL 1.9 MG/DL (1.8-2.4); NON-HDL-C 84 MG/DL; PERCENT SATURATION 22.3 % (13.2-45.0); POTASSIUM SERUM 4.6 MEQ/L (3.5-5.1); SODIUM LEVEL 140 MEQ/L (136-145); THYROID STIMULATING HORMONE 0.067 uIU/ML (0.358-3.740); TOTAL IRON BINDING CAPACITY 476 UG/DL (250-450); TRIGLYCERIDES LEVEL 101 MG/DL (<150); VITAMIN B12 LEVEL 924 PG/ML (247-911)
== END ==
LOC: M LAB 09:44
PROVIDERS: ATTEND Family Medicine
DX: Z98.84 Bariatric surgery status (principal); E03.9 Hypothyroidism, unspecified; E11.9 Type 2 diabetes mellitus without complications; Z79.899 Other long term (current) drug therapy

== ENCOUNTER → 2023-02-01 | Outpatient (CLI) | payer OTHER ==
[2023-02-01 11:19] LABS: FREE T4 0.9 NG/DL (0.89-1.76); THYROID STIMULATING HORMONE 0.839 uIU/ML (0.55-4.78); TOTAL T3 95.8 NG/DL (60.0-181.0)
[2023-02-01 11:30] LABS: HEMOGLOBIN A1c 5.3 % (4.0-6.0)
== END ==
LOC: M LAB 10:19
PROVIDERS: ATTEND Family Medicine
DX: E03.9 Hypothyroidism, unspecified (principal); E11.9 Type 2 diabetes mellitus without complications

== ENCOUNTER → 2023-08-29 | Outpatient (CLI) | payer OTHER ==
[~2023-08-29] MED LIST changes: -GABA-283 PO; +GABA-284 PO; -OXYB5TAB10 PO; +OXYB5TAB11 PO
[2023-08-29 13:31] LABS: BASO # 0.1 10^3/uL (0.0-0.2); EOS # 0.1 10^3/uL (0.0-0.5); EOS % 1.6 % (0.0-3.0); HEMATOCRIT 38.9 % (36.0-47.0); HEMOGLOBIN 12.3 g/dl (12.0-15.5); LYMPH # 1.7 10^3/uL (1.5-5.0); LYMPH % 32.5 % (24.0-44.0); MEAN CORPUSCULAR HEMOGLOBIN 27.3 pg (27.0-33.0); MEAN CORPUSCULAR HGB CONC 31.6 g/dl (32.0-36.5); MEAN CORPUSCULAR VOLUME 86.4 fl (80.0-96.0); MONO # 0.5 10^3/uL (0.0-0.8); MONO % 9.1 % (2.0-8.0); NEUTROPHILS # 2.8 10^3/uL (1.5-8.5); NEUTROPHILS % 55.8 % (36.0-66.0); PLATELET COUNT, AUTOMATED 295 10^3/uL (150-450); WHITE BLOOD COUNT 5.1 10^3/uL (4.0-10.0)
[2023-08-29 13:53] LABS: TOTAL IRON BINDING CAPACITY 422 UG/DL (250-425)
[2023-08-29 13:54] LABS: IRON (FE) 49 UG/DL (50-170); PERCENT SATURATION 11.6 % (13.2-45.0)
[2023-08-29 13:57] LABS: ALBUMIN 3.5 G/DL (3.2-5.2); ALKALINE PHOSPHATASE 85 U/L (46-116); ALT/SGPT 24 U/L (7.0-40); AST/SGOT 27 U/L (<34); BILIRUBIN,TOTAL 0.4 MG/DL (0.3-1.2); BLOOD UREA NITROGEN 14 MG/DL (9-23); CALCIUM LEVEL 9.3 MG/DL (8.3-10.6); CARBON DIOXIDE LEVEL 29 MMOL/L (20-31); CHLORIDE LEVEL 105 MMOL/L (98-107); CHOLESTEROL LEVEL 152 MG/DL (<200); CREATININE FOR GFR 0.77 MG/DL (0.55-1.30); FERRITIN 10.5 NG/ML (7.3-270.7); FOLATE > 24.0 NG/ML (>5.4); FREE T3 2.7 PG/ML (2.3-4.2); FREE T4 0.91 NG/DL (0.89-1.76); GLOMERULAR FILTRATION RATE > 60.0 (>39); GLUCOSE, FASTING 93 MG/DL (74-106); HDL CHOLESTEROL 88.9 MG/DL (>40); LDL CHOLESTEROL 53.1 MG/DL (<100); NON-HDL-C 63.1 MG/DL; SODIUM LEVEL 140 MMOL/L (136-145); THYROID STIMULATING HORMONE 2.344 uIU/ML (0.55-4.78); TOTAL 25(OH) VITAMIN D 43.4 NG/ML (20.0-100.0); TOTAL PROTEIN 7.4 G/DL (5.7-8.2); TRIGLYCERIDES LEVEL 50 MG/DL (<150); VITAMIN B12 LEVEL 974 PG/ML (211-911)
== END ==
LOC: M LAB 12:26
PROVIDERS: ATTEND Family Medicine
DX: E11.9 Type 2 diabetes mellitus without complications (principal); E03.9 Hypothyroidism, unspecified; Z98.84 Bariatric surgery status; Z79.899 Other long term (current) drug therapy

== ENCOUNTER → 2024-03-02 | Outpatient (CLI) | payer MEDICARE, OTHER ==
[~2024-03-02] MED LIST changes: -OXYB5TAB11 PO; +OXYB5TAB14 PO
[2024-03-02 11:13] LABS: BASO # 0.1 10^3/uL (0.0-0.2); BASO % 1.1 % (0.0-1.0); EOS # 0.1 10^3/uL (0.0-0.5); EOS % 3.1 % (0.0-3.0); HEMATOCRIT 36.4 % (36.0-47.0); HEMOGLOBIN 11.5 g/dl (12.0-15.5); LYMPH # 2.2 10^3/uL (1.5-5.0); LYMPH % 47.3 % (24.0-44.0); MEAN CORPUSCULAR HGB CONC 31.6 g/dl (32.0-36.5); MEAN CORPUSCULAR VOLUME 85.4 fl (80.0-96.0); MONO # 0.5 10^3/uL (0.0-0.8); MONO % 11.1 % (2.0-8.0); NEUTROPHILS # 1.7 10^3/uL (1.5-8.5); NEUTROPHILS % 37.2 % (36.0-66.0); PLATELET COUNT, AUTOMATED 240 10^3/uL (150-450); RED BLOOD COUNT 4.26 10^6/uL (4.00-5.40); WHITE BLOOD COUNT 4.6 10^3/uL (4.0-10.0)
[2024-03-02 11:37] LABS: ALBUMIN 2.8 G/DL (3.2-5.2); ALKALINE PHOSPHATASE 87 U/L (46-116); ALT/SGPT 19 U/L (7.0-40); AST/SGOT 25 U/L (<34); BILIRUBIN,TOTAL 0.4 MG/DL (0.3-1.2); BLOOD UREA NITROGEN 11 MG/DL (9-23); CALCIUM LEVEL 8.7 MG/DL (8.3-10.6); CARBON DIOXIDE LEVEL 28 MMOL/L (20-31); CHLORIDE LEVEL 110 MMOL/L (98-107); CHOLESTEROL LEVEL 148 MG/DL (<200); CHOLESTEROL RISK RATIO 2.11 (<5); CREATININE FOR GFR 0.86 MG/DL (0.55-1.30); FREE T4 1.01 NG/DL (0.89-1.76); GLOMERULAR FILTRATION RATE > 60.0 (>39); GLUCOSE, FASTING 97 MG/DL (74-106); HDL CHOLESTEROL 70.1 MG/DL (>40); IRON (FE) 48 UG/DL (50-170); LDL CHOLESTEROL 52.7 MG/DL (<100); NON-HDL-C 77.9 MG/DL; POTASSIUM SERUM 4.2 MMOL/L (3.5-5.1); SODIUM LEVEL 145 MMOL/L (136-145); THYROID STIMULATING HORMONE 0.157 uIU/ML (0.55-4.78); TOTAL IRON BINDING CAPACITY 369 UG/DL (250-425); TOTAL PROTEIN 6.5 G/DL (5.7-8.2); TRIGLYCERIDES LEVEL 126 MG/DL (<150)
[2024-03-02 11:38] LABS: FERRITIN 8.1 NG/ML (7.3-270.7); TOTAL 25(OH) VITAMIN D 34.2 NG/ML (20.0-100.0); VITAMIN B12 LEVEL 1178 PG/ML (211-911)
== END ==
LOC: M LAB 10:40
PROVIDERS: ATTEND Family Medicine
DX: E03.9 Hypothyroidism, unspecified (principal); E11.9 Type 2 diabetes mellitus without complications; Z98.84 Bariatric surgery status; Z79.899 Other long term (current) drug therapy

== ENCOUNTER → 2024-09-17 | Outpatient (CLI) | payer OTHER ==
[2024-09-17 11:29] LABS: BASO # 0.1 10^3/uL (0.0-0.2); BASO % 1.2 % (0.0-1.0); EOS # 0.1 10^3/uL (0.0-0.5); HEMATOCRIT 39.5 % (36.0-47.0); HEMOGLOBIN 12.2 g/dl (12.0-15.5); LYMPH # 1.9 10^3/uL (1.5-5.0); LYMPH % 38.6 % (24.0-44.0); MEAN CORPUSCULAR HEMOGLOBIN 26.6 pg (27.0-33.0); MEAN CORPUSCULAR HGB CONC 30.9 g/dl (32.0-36.5); MEAN CORPUSCULAR VOLUME 86.1 fl (80.0-96.0); MONO # 0.5 10^3/uL (0.0-0.8); MONO % 9.2 % (2.0-8.0); NEUTROPHILS # 2.4 10^3/uL (1.5-8.5); NEUTROPHILS % 48.8 % (36.0-66.0); PLATELET COUNT, AUTOMATED 326 10^3/uL (150-450); RED BLOOD COUNT 4.59 10^6/uL (4.00-5.40); WHITE BLOOD COUNT 4.9 10^3/uL (4.0-10.0)
[2024-09-17 11:49] LABS: HEMOGLOBIN A1c 5.4 % (4.0-6.0)
[2024-09-17 12:01] LABS: CREATININE, URINE 56.4 MG/DL; CREATININE,RANDOM URINE 56.4 MG/DL
[2024-09-17 12:02] LABS: MAU/CREAT RATIO 70.9 MCG/MG (0.0-30.0)
[2024-09-17 12:04] LABS: ALBUMIN 3.3 G/DL (3.2-5.2); ALKALINE PHOSPHATASE 87 U/L (35-104); ALT/SGPT 17 U/L (7.0-40); AST/SGOT 22 U/L (<34); BILIRUBIN,TOTAL 0.4 MG/DL (0.3-1.2); BLOOD UREA NITROGEN 12 MG/DL (9-23); CALCIUM LEVEL 9.5 MG/DL (8.3-10.6); CARBON DIOXIDE LEVEL 29 MMOL/L (20-31); CHLORIDE LEVEL 110 MMOL/L (98-107); CHOLESTEROL LEVEL 190 MG/DL (<200); CHOLESTEROL RISK RATIO 2.95 (<5); CREATININE FOR GFR 0.75 MG/DL (0.55-1.30); GLOMERULAR FILTRATION RATE > 60.0 (>39); GLUCOSE, FASTING 85 MG/DL (74-106); HDL CHOLESTEROL 64.4 MG/DL (>40); LDL CHOLESTEROL 101.8 MG/DL (<100); NON-HDL-C 125.6 MG/DL; POTASSIUM SERUM 4.4 MMOL/L (3.5-5.1); SODIUM LEVEL 141 MMOL/L (136-145); TOTAL PROTEIN 7.7 G/DL (5.7-8.2); TRIGLYCERIDES LEVEL 119 MG/DL (<150)
[2024-09-17 12:08] LABS: FREE T3 2.8 PG/ML (2.3-4.2); FREE T4 0.94 NG/DL (0.89-1.76)
== END ==
LOC: M LAB 09:56
PROVIDERS: ATTEND Family Medicine
DX: E11.9 Type 2 diabetes mellitus without complications (principal); E03.9 Hypothyroidism, unspecified